=== PATIENT | male | born 1950 | race Caucasian/White ===

== ENCOUNTER 2018-10-11 09:51 | Observation (INO) | payer OTHER ==
[2018-10-11 10:35] LABS: Absolute Lymphocytes (CBC) 1.2 K/uL (0.7-4.9); Absolute Monocytes 1.1 K/uL (0.1-1.3); Absolute Neutrophil 9.9 K/uL (1.8-8.0); Basophils % 1.2 % (0-1.3); Hematocrit 13.1 % (39.6-49.0); Lymphocytes % 8.7 % (15.3-44.8); MPV 6.7 fL (7.6-11.3); Monocytes % 7.7 % (3.3-12.3); RBC Red Blood Cell Count 2.23 M/uL (4.33-5.43)
[2018-10-11 10:49] LABS: Protime INR 1.26
[2018-10-11 10:58] LABS: Albumin 2.7 g/dL (3.4-5.0); Bilirubin Direct 0.2 mg/dL (0-0.2); Bilirubin Total 0.4 mg/dL (0.2-1.0); Magnesium 2.3 mg/dL (1.8-2.4); Protein, Total 7.2 g/dL (6.4-8.2); Troponin (Emerg Dept Use Only) 0.12 ng/mL (0.0-0.045)
--- NOTE | 2018-10-11 11:39 | RAD REPORT ---
EXAM DESCRIPTION: RAD - Chest Single View - 10/11/2018 10:41 am CLINICAL HISTORY: Palpitations, difficulty breathing COMPARISON: June 2016 TECHNIQUE: AP portable chest image was obtained 1030 hours . FINDINGS: Lung volumes are low. No peripheral mass consolidation. Acute failure or volume overload a re doubtful. Interstitial markings are prominent due to the shallow inspiration. Significant change f rom prior study is doubtful. No new or progressive hilar finding. Heart and vasculature are normal. N o measurable pleural effusion and no pneumothorax. No acute bony abnormality seen. No acute aortic fi ndings suspected. IMPRESSION: No acute cardiopulmonary process. No significant change from comparison.
[2018-10-11 11:42] LABS: Anisocytosis 3+; Blood Morphology Comment NOTED (NOT SEEN); Hypochromasia 3+; Platelet Estimate INCR; Poikilocytosis 1+; Polychromasia 2+
[2018-10-11] MEDS ORDERED: NA CHLORIDE 0.9% 1,000 ML ONE (11:59)
--- NOTE | 2018-10-11 12:04 | ER ---
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 Transition of care: patient was not received from another setting of care. Onset of symptoms was October 11, 2018. Risk Assessment: Do you want to hurt yourself or someone else? Patient reports no desire to harm self or others. Initial Sepsis Screen: Does the patient meet any 2 criteria? No. Patient's initial sepsis screen is negative. Care prior to arrival: None. 10:09 Method Of Arrival: Ambulatory ph 10:09 Acuity: ALISON 3 ph 10:33 Initial Sepsis Screen: Does the patient have a suspected source of infection? No. ls4 Patient's initial sepsis screen is negative. Triage Assessment: 10:30 General: Appears in no apparent distress. Behavior is calm, cooperative. Pain: Denies ls4 pain. Historical: - Allergies: 10:13 No Known Allergies; ph - Home Meds: 16:16 Metoprolol Tartate 50mg BID, Metformin HCL 500mg BID, Benzonatate 100mg Q8HRS PRN mg2 [Active]; - PMHx: 10:34 Diabetes - NIDDM; Hypertension; Cancer, penile; ls4 - PSHx: 10:34 Appendectomy; ls4 - Immunization history:: Adult Immunizations unknown. - Social history:: Smoking status: Patient/guardian denies using tobacco. - Ebola Screening: : No symptoms or risks identified at this time. Screenin:32 Abuse screen: Denies threats or abuse. Denies injuries from another. Nutritional ls4 screening: No deficits noted. Tuberculosis screening: No symptoms or risk factors identified. Fall Risk None identified. Assessment: 10:31 General: Appears in no apparent distress. Behavior is calm, cooperative. Pain: Denies ls4 pain. Neuro: Level of Consciousness is awake, alert, obeys commands, Oriented to person, place, time, situation. Cardiovascular: Denies chest pain, diaphoresis, lightheadedness, nausea, palpitations. Respiratory: Airway is patent Respiratory effort is even, unlabored, Respiratory pattern is regular. GI: No signs and/or symptoms were reported involving the gastrointestinal system. : Reports blood in urine. Derm: Skin is dry, Skin is pale, Skin temperature is warm. 11:30 Reassessment: Patient appears in no apparent distress at this time. Patient and/or ls4 family updated on plan of care and expected duration. Pain level reassessed. Patient is alert, oriented x 3, equal unlabored respirations, skin warm/dry/pink. 12:23 Reassessment: Patient appears in no apparent distress at this time. Patient and/or ls4 family updated on plan of care and expected duration. Pain level reassessed. Patient is alert, oriented x 3, equal unlabored respirations, skin warm/dry/pink. 14:10 Reassessment: Patient appears in no apparent distress at this time. Patient and/or ls4 family updated on plan of care and expected duration. Pain level reassessed. Patient is alert, oriented x 3, equal unlabored respirations, skin warm/dry/pink. FIRST UNIT OF PRBC BEGUN. 2ND NURSE VERIFIED WITH MAHESH GREENE. CONSENT ON CHART SIGNED BY PT AND MD AND WITNESSED. PT GIVEN TRAY. PT IN NO DISTRESS. 16:04 Reassessment: ist bag of blood transfusion consumed.no reactions noted. mg2 Vital Signs: 10:11 BP 123 / 43; Pulse 76; Resp 22; Temp 98.0; Pulse Ox 98% on R/A; Weight 79.38 kg; Height ph 5 ft. 8 in. (172.72 cm); Pain 7/10; 11:00 BP 113 / 54; Pulse 66; Resp 16; Pulse Ox 100% on R/A; ls4 12:00 BP 107 / 53; Pulse 60; Resp 16; Pulse Ox 100% on R/A; Pain 0/10; ls4 13:37 BP 121 / 48; Pulse 58; Resp 16; Temp 97.1(TE); Pulse Ox 100% on R/A; ls4 16:09 BP 126 / 52; Pulse 65; Resp 18; Temp 97.5(O); Pulse Ox 100% on R/A; Pain 0/10; mg2 10:11 Body Mass Index 26.61 (79.38 kg, 172.72 cm) ph ED Course: 09:54 Patient arrived in ED. as 10:02 Keeley Ponce FNP-C is [facility]. kb 10:02 Guevara Palm MD is Attending Physician. kb 10:11 Triage completed. ph 10:12 Arm band placed on Patient placed in an exam room, on a stretcher, on pulse oximetry. ph 10:29 Saranya Iniguez RN is Primary Nurse. ls4 10:30 EKG completed in triage. Results shown to MD. ls4 10:30 XRAY Chest (1 view) Sent. ls4 10:32 Patient has correct armband on for positive identification. Bed in low position. Call ls4 light in reach. Side rails up X 1. monitoring specialist on. Pulse ox on. NIBP on. Diet: Patient is NPO. 10:33 X-ray completed. Portable x-ray completed in exam room. Patient tolerated procedure jb2 well. 10:33 No provider procedures requiring assistance completed. Initial lab(s) drawn, by nv, ls4 sent to lab. EKG done, by security installation technician. X-ray(s) taken. Inserted saline lock: 20 gauge in right antecubital area, using aseptic technique. Blood collected. 10:41 XRAY Chest (1 view) In Process Unspecified. EDMS 10:41 Notified ED physician of a critical lab result(s). Hemoglobin 3.8 and Hematocrit 13.1. aa5 10:46 EKG done, by security installation technician. reviewed by Keeley CONROY. at1 11:26 Bb Add On Sent. ls4 12:04 Mari Rawls MD is Hospitalizing Provider. kb 16:16 Patient admitted, IV remains in place. mg2 Administered Medications: 15:23 Drug: [place] (7.5 mg-325 mg) 1 tabs Route: PO; mg2 16:24 Follow up: Response: No adverse reaction; Marked relief of symptoms mg2 Outcome: 12:04 Decision to Hospitalize by Provider. kb 16:10 Admitted to Med/surg accompanied by tech, via wheelchair, room 213, with chart, Report mg2 called to RAMONA Benton 16:10 Condition: stable 16:10 Instructed on the need for admit, Demonstrated understanding of instructions. 16:25 Patient left the ED. mg2 Signatures: Dispatcher [employer] EDMS Keeley Ponce, KEELEY-C CART DRIVER-Severiano Sylvester2 Katy Swartz Audri, RN RN aa5 Arcelia Jiang, house painter helper EKG Tat1 Aruna Selby RN RN ph Nigel Huynh RN RN mg2 Saranya Iniguez RN RN ls4 Corrections: (The following items were deleted from the chart) 10:34 10:13 PMHx: Diabetes - NIDDM; ph ls4 10:34 10:13 PMHx: Hypertension; ph ls4 10:34 10:13 PMHx: Cancer, penile; ph ls4 10:34 10:13 PSHx: Appendectomy; ph ls4
--- NOTE | 2018-10-11 12:05 | EDPHYS ---
Physician Documentation [facility] Name: Mikel Serrato Age: 68 yrs Sex: Male : 1950 Arrival Date: 10/11/2018 Time: 09:54 Bed 24 Private MD: ED Physician Guevara Palm HPI: 10/11 10:13 This 68 yrs old Male presents to ER via Ambulatory with complaints of kb Weakness. 10:13 The patient presents with dizziness, generalized weakness. Onset: The symptoms/episode kb began/occurred 1 month(s) ago. Context: occurred at home. Modifying factors: The symptoms are alleviated by nothing, the symptoms are aggravated by nothing. Associated signs and symptoms: Pertinent positives: palpitations, shortness of breath. Severity of symptoms: At their worst the symptoms were moderate in the emergency department the symptoms are unchanged. Patient's baseline: Neuro: alert and fully oriented, Motor: no deficits, Ambulation: walks without assistance, Speech: normal. The patient has not experienced similar symptoms in the past. Pt reports dizziness, weakness, shortness of breath and "heart beating hard" for about a month. Went to PCP today and was told he needed to come have a blood transfusion. Reports he has hematuria that has been an ongoing issue. Was seen by urologist for hematuria and was told he needed to have surgery, but pt did not want it done. Reports he was diagnosed with penile cancer a year ago and is going to [facility] [place] soon for the treatment because it is not offered in the . Denies chest pain, reports he has penile pain, but no more than normal. . 10:18 The patient has been recently seen by a physician: the patient's primary care provider, kb earlier today, with similar presenting complaints, and was sent to the [facility] Emergency Department for further evaluation. Historical: - Allergies: 10:13 No Known Allergies; ph - Home Meds: 16:16 Metoprolol Tartate 50mg BID, Metformin HCL 500mg BID, Benzonatate 100mg Q8HRS PRN mg2 [Active]; - PMHx: 10:34 Diabetes - NIDDM; Hypertension; Cancer, penile; ls4 - PSHx: 10:34 Appendectomy; ls4 - Immunization history:: Adult Immunizations unknown. - Social history:: Smoking status: Patient/guardian denies using tobacco. - Ebola Screening: : No symptoms or risks identified at this time. ROS: 10:11 Constitutional: Negative for fever, chills, and weight loss, ENT: Negative for injury, kb pain, and discharge, Neck: Negative for injury, pain, and swelling, Abdomen/GI: Negative for abdominal pain, nausea, vomiting, diarrhea, and constipation, Back: Negative for injury and pain, MS/Extremity: Negative for injury and deformity, Skin: Negative for injury, rash, and discoloration. 10:11 Cardiovascular: Positive for palpitations, "feels like my heart is beating hard". 10:11 Respiratory: Positive for dyspnea on exertion, shortness of breath. 10:11 Neuro: Positive for dizziness, weakness. Exam: 10:11 Head/Face: Normocephalic, atraumatic. ENT: Nares patent. No nasal discharge, no kb septal abnormalities noted. Tympanic membranes are normal and external auditory canals are clear. Oropharynx with no redness, swelling, or masses, exudates, or evidence of obstruction, uvula midline. Mucous membranes moist. Neck: Trachea midline, no thyromegaly or masses palpated, and no cervical lymphadenopathy. Supple, full range of motion without nuchal rigidity, or vertebral point tenderness. No Meningismus. Chest/axilla: Normal chest wall appearance and motion. Nontender with no deformity. No lesions are appreciated. Cardiovascular: Regular rate and rhythm with a normal S1 and S2. No gallops, murmurs, or rubs. Normal PMI, no JVD. No pulse deficits. Respiratory: Lungs have equal breath sounds bilaterally, clear to auscultation and percussion. No rales, rhonchi or wheezes noted. No increased work of breathing, no retractions or nasal flaring. Abdomen/GI: Soft, non-tender, with normal bowel sounds. No distension or tympany. No guarding or rebound. No evidence of tenderness throughout. Skin: Warm, dry with normal turgor. Normal color with no rashes, no lesions, and no evidence of cellulitis. MS/ Extremity: Pulses equal, no cyanosis. Neurovascular intact. Full, normal range of motion. Neuro: Awake and alert, GCS 15, oriented to person, place, time, and situation. Cranial nerves II-XII grossly intact. Motor strength 5/5 in all extremities. Sensory grossly intact. Cerebellar exam normal. Normal gait. 10:11 Constitutional: The patient appears alert, awake, pale. Vital Signs: 10:11 BP 123 / 43; Pulse 76; Resp 22; Temp 98.0; Pulse Ox 98% on R/A; Weight 79.38 kg; Height ph 5 ft. 8 in. (172.72 cm); Pain 7/10; 11:00 BP 113 / 54; Pulse 66; Resp 16; Pulse Ox 100% on R/A; ls4 12:00 BP 107 / 53; Pulse 60; Resp 16; Pulse Ox 100% on R/A; Pain 0/10; ls4 13:37 BP 121 / 48; Pulse 58; Resp 16; Temp 97.1(TE); Pulse Ox 100% on R/A; ls4 16:09 BP 126 / 52; Pulse 65; Resp 18; Temp 97.5(O); Pulse Ox 100% on R/A; Pain 0/10; mg2 10:11 Body Mass Index 26.61 (79.38 kg, 172.72 cm) ph MDM: 10:02 Patient medically screened. kb 10:13 Data reviewed: vital signs, nurses notes. Data interpreted: Pulse oximetry: on room air kb is 98 %. Interpretation: normal. 11:41 Counseling: I had a detailed discussion with the patient and/or guardian regarding: the kb historical points, exam findings, and any diagnostic results supporting the discharge/admit diagnosis, lab results, radiology results, the need for further work-up and treatment in the hospital. 10/11 10:09 Order name: LFT's; Complete Time: 10:59 kb 10/11 10:09 Order name: Basic Metabolic Panel; Complete Time: 10:59 kb 10/11 10:09 Order name: CBC with Diff; Complete Time: 11:46 kb 10/11 10:09 Order name: Magnesium; Complete Time: 10:59 kb 10/11 10:09 Order name: NT PRO-BNP; Complete Time: 10:59 kb 10/11 10:09 Order name: PT-INR; Complete Time: 10:55 kb 10/11 10:09 Order name: Troponin (emerg Dept Use Only); Complete Time: 10:59 kb 10/11 10:09 Order name: Type And Screen kb 10/11 11:00 Order name: Bb Add On bd 10/11 11:13 Order name: ABO/RH no charge; Complete Time: 11:14 [facility] 10/11 11:26 Order name: Urine Dipstick--Ancillary (enter results); Complete Time: 12:15 10/11 11:31 Order name: Packed RBC Leukored -1 [facility] 10/11 11:42 Order name: Manual Differential; Complete Time: 11:46 [facility] 10/11 10:09 Order name: XRAY Chest (1 view); Complete Time: 11:41 kb 10/11 10:09 Order name: EKG; Complete Time: 10:10 kb 10/11 10:09 Order name: Cardiac monitoring; Complete Time: 10:30 kb 10/11 10:09 Order name: EKG - Nurse/Tech; Complete Time: 10:30 kb 10/11 10:09 Order name: IV Saline Lock; Complete Time: 10:30 kb 10/11 10:09 Order name: Labs collected and sent; Complete Time: 10:30 kb 10/11 10:09 Order name: O2 Per Protocol; Complete Time: 10:30 kb 10/11 10:09 Order name: O2 Sat Monitoring; Complete Time: 10:30 kb 10/11 10:53 Order name: Urine Dipstick-Ancillary (obtain specimen); Complete Time: 11:26 kb 10/11 13:16 Order name: Diet Regular; Complete Time: 13:17 bd Administered Medications: 15:23 Drug: [place] (7.5 mg-325 mg) 1 tabs Route: PO; mg2 16:24 Follow up: Response: No adverse reaction; Marked relief of symptoms mg2 Disposition: 18:56 Co-signature as Attending Physician, Guevara Palm MD. rn Disposition: 10/11/18 12:04 Hospitalization ordered by Mari Rawls for Observation. Preliminary diagnosis are Anemia, unspecified, Hematuria, unspecified. - Bed requested for Telemetry/MedSurg (observation). - Status is Observation. mg2 - Condition is Stable. - Problem is new. - Symptoms are unchanged. UTI on Admission? No Signatures: Dispatcher [employer] [facility] Keeley Ponce FNP-C DATA ANALYST REPORT WRITER-CkJelly Mccarty Guevara Palm MD MD rn Hall, Patricia, RN RN Nigel Huynh RN RN [facility] Hira, Saranya, RN RN ls4 Corrections: (The following items were deleted from the chart) 10:34 10:13 PMHx: Diabetes - NIDDM; ph ls4 10:34 10:13 PMHx: Hypertension; ph ls4 10:34 10:13 PMHx: Cancer, penile; ph ls4 10:34 10:13 PSHx: Appendectomy; ph ls4 15:43 12:04 Hospitalization Ordered by Mari Rawls MD for Observation. Preliminary bd diagnosis is Anemia, unspecified; Hematuria, unspecified. Bed requested for Telemetry/MedSurg (observation). Status is Observation. Condition is Stable. Problem is new. Symptoms are unchanged. UTI on Admission? No. kb 16:25 15:43 10/11/2018 12:04 Hospitalization Ordered by Mari Rawls MD for Observation. mg2 Preliminary diagnosis is Anemia, unspecified; Hematuria, unspecified. Bed requested for Telemetry/MedSurg (observation). Status is Observation. Condition is Stable. Problem is new. Symptoms are unchanged. UTI on Admission? No. bd
[2018-10-11 12:14] LABS: Urine Blood 2+ (NEG); Urine Glucose NEGATIVE (NEG); Urine Protein 2+ (NEG); Urine Specific Gravity 1.015 (1.005-1.030)
--- NOTE | 2018-10-11 14:46 | EKG ---
Test Date: 2018-10-11 Test Time: 10:14:50 Talk Show Host: KIMMIE MEASUREMENT RESULTS: Intervals: Rate: 72 MN: 180 QRSD: 102 QT: 400 QTc: 438 [place]: P: -4 MN: 180 QRS: 8 T: 34 INTERPRETIVE STATEMENTS: Normal sinus rhythm Normal ECG Compared to ECG 03/19/2016 06:28:31 Sinus bradycardia no longer present First degree AV block no longer present Electronically Signed On 10-11-18 14:44:23 FISHING CAPTAIN by Macho Aldrich
[2018-10-11] MEDS ORDERED: HYDROCODONE/APAP 7.5/325 MG TAB ONE (15:32)
[2018-10-11] MEDS ORDERED: ONDANSETRON 4 MG/2 ML VIAL IV PRN (16:32)
--- NOTE | 2018-10-11 17:11 | P.HP ---
Certification for Inpatient Patient admitted to: Observation With expected LOS: <2 Midnights Patient will require the following post-hospital care: None Practitioner: I am a practitioner with admitting privileges, knowledge of patient current condition, hospital course, and medical plan of care. Services: Services provided to patient in accordance with Admission requirements found in Title 42 Section 412.3 of the Code of Federal Regulations Patient History Date of Service: 10/11/18 History of Present Illness: This is a 68-year-old male with significant past medical history of diabetes, hypertension, questionable penile cancer along with hematuria who presented to the ED complaining of having some dizziness and generalized weakness. Patient noted that this past Wednesday he had extensive hematuria and after which he started noticing that he was becoming more weak and having dizziness and thus he decided to come to the ER. Patient stated that he has been having hematuria on and off for over 1 year and has been seen by 4 different urologist. Patient initially went to his primary care doctor for his initial evaluation of hematuria. From there patient was referred over to Urology where he was told that he had questionable penile cancer and hematuria needed to be worked up. Patient and at bedside are very poor historian. Patient does not know if he had any biopsy or imaging done to evaluate for the cancer. Patient says that he only remembers getting a CT scan done somewhere in [facility] that revealed the Cancer. Patient has been followed up by his primary care doctor in terms of cancer and has been seeking treatment outside of the [place] in the [facility] for cure of his cancer. He has stopped seeing any urologist and is only currently followed up by primary care doctor for his cancer. Patient states that he has been making arrangements to travel to [facility] where he could start his treatment as early as 2 weeks from now. Patient however has been given a list of things that he needs to get done before he goes over for treatment there. states that the list is a currently with his primary care doctor's office and will be bringing in in tomorrow. Allergies NKDA Allergy (Uncoded 10/11/18 16:45) Unknown No Known Allerg Allergy (Uncoded 10/11/18 16:45) Unknown Home Medications: Hydrocodone Bit/Acetaminophen [Hydrocodon-Acetaminoph 7.5-500] 7.5 mg PO BID Iron,Carbonyl [Feosol] 65 mg PO DAILY 10/11/18 Metformin HCl 500 mg PO BID 10/11/18 Milk Thistle/Nac/Dandel/Turmer [Liver Complex Tablet] 10/11/18 Montelukast [Singulair*] 10 mg PO PRN 10/11/18 - Past Medical/Surgical History Diabetic: Yes -: DM -: HTN -: APPY -: RIGHT HIP SX -: RIGHT KNEE SX - Social History Alcohol use: Yes CD- Drugs: No Caffeine use: Yes Review of Systems 10-point ROS is otherwise unremarkable Physical Examination - Vital Signs Temperature: 97.5 F Blood Pressure: 126/52 Pulse: 65 Respirations: 18 - Physical Exam General: In no apparent distress, Moderate distress, Other (Pale-appearing) HEENT: Atraumatic, PERRLA, Other (Dry mucous membrane) Neck: Supple, 2+ carotid pulse no bruit, No LAD, Without JVD or thyroid abnormality Respiratory: Clear to auscultation bilaterally, Normal air movement Cardiovascular: Regular rate/rhythm, Normal S1 S2 Capillary refill: >2 Seconds Gastrointestinal: Normal bowel sounds, No tenderness Musculoskeletal: No tenderness, Other (Pale appearing) Integumentary: No rashes Neurological: Normal speech, Normal tone, Sensation intact, Cranial nerves 3-12 intact, Abnormal strength Lymphatics: No axilla or inguinal lymphadenopathy - Studies Laboratory Data (last 24 hrs) 10/11/18 10:15: PT 14.7 H, INR 1.26 10/11/18 10:15: WBC 13.6 H, Hgb 3.8 L*, Hct 13.1 L*, Plt Count 530 H 10/11/18 10:15: Sodium 138, Potassium 4.0, BUN 17, Creatinine 0.98, Glucose 117 H, Magnesium 2.3, Total Bilirubin 0.4, AST 11 L, ALT 11 L, Alkaline Phosphatase 85 Assessment and Plan - Problems (Diagnosis) (1) Symptomatic anemia Current Visit: Yes Status: Acute Plan: Currently symptomatic anemia most likely secondary to hematuria. -hemoglobin on admission at 3.8 with patient very pale appearing and tachycardia -will go ahead and transfuse 3 units of packed RBC and recheck hemoglobin after transfusion (2) Hematuria Current Visit: Yes Status: Acute Plan: Gross hematuria intermittent for over 1 year most likely secondary to suspected penile cancer -will go ahead and consult urology here in the hospital. Will await further recommendations at this time. Qualifiers: Hematuria type: gross Qualified Code(s): R31.0 - Gross hematuria (3) Penile cancer Current Visit: Yes Status: Suspected Plan: Suspected penile cancer -currently no imaging, no biopsy her no other result available in the system -will contact primary care doctor for further information. (4) Hypertension Current Visit: Yes Status: Chronic Qualifiers: Hypertension type: essential hypertension Qualified Code(s): I10 - Essential (primary) hypertension (5) Diabetes Current Visit: No Status: Chronic Qualifiers: Diabetes mellitus type: type 2 Diabetes mellitus correction insulin use: without regional intermodal truck driver use Diabetes mellitus complication status: without complication Qualified Code(s): E11.9 - Type 2 diabetes mellitus without complications Discharge Plan: Home Plan to discharge in: 48 Hours - Advance Directives Does patient have a Living Will: No Does patient have a Durable POA for Healthcare: No - Code Status/Comfort Care Code Status Assessed: Yes Critical Care: No
[2018-10-11] MEDS: NA CHLORIDE 0.9% 1,000 ML IV SCH (17:19)
[2018-10-11] MEDS ORDERED: INFLUENZA VACCINE (for 3y+) 0.5 ML DOSE IMVAC ONE (18:00)
[2018-10-11 18:12] VITALS: BMI 25.7
[2018-10-11] MEDS ORDERED: NA CHLORIDE 0.9% 250 ML ONE (19:46)
[2018-10-12 02:26] LABS: Hematocrit 19.1 % (39.6-49.0)
[2018-10-12] MEDS: NA CHLORIDE 0.9% 1,000 ML IV SCH ×3 (02:32→21:25)
[2018-10-12] MEDS ORDERED: NA CHLORIDE 0.9% 250 ML ONE ×2 (03:17→10:21)
[2018-10-12] MEDS ORDERED: HYDROCODONE/APAP 7.5/325 MG TAB PO PRN (03:41)
[2018-10-12 06:17] LABS: ALT/SGPT 10 U/L (12-78); AST/SGOT 11 U/L (15-37); Albumin 2.4 g/dL (3.4-5.0); Alkaline Phosphatase 82 U/L (45-117); BUN Blood Urea Nitrogen 13 mg/dL (7-18); Bicarbonate 26 mmol/L (21-32); Glucose Level 92 mg/dL (74-106); Potassium 4.2 mmol/L (3.5-5.1); Protein, Total 6.4 g/dL (6.4-8.2); Sodium Level 139 mmol/L (136-145)
[2018-10-12 06:28] LABS: Absolute Lymphocytes (CBC) 1.5 K/uL (0.7-4.9); Absolute Monocytes 1.2 K/uL (0.1-1.3); Absolute Neutrophil 8.7 K/uL (1.8-8.0); Basophils % 0.9 % (0-1.3); Eosinophils % 12.9 % (0-4.4); Lymphocytes % 11.3 % (15.3-44.8); MPV 6.9 fL (7.6-11.3); Monocytes % 9.2 % (3.3-12.3); RBC Red Blood Cell Count 2.85 M/uL (4.33-5.43)
[2018-10-12 06:44] LABS: Hematocrit 20.4 % (39.6-49.0)
[2018-10-12] MEDS: HYDROCODONE/APAP 7.5/325 MG TAB PO PRN ×2 (11:27→21:25)
[2018-10-12 13:47] LABS: T3 Free 2.41 pg/mL (2.18-3.98)
[2018-10-12 13:48] LABS: Thyroid Stimulating Hormone 8.76 uIU/mL (0.360-3.740)
[2018-10-12 16:08] LABS: Hematocrit 27.8 % (39.6-49.0)
--- NOTE | 2018-10-12 17:23 | P.PN ---
Subjective Date of Service: 10/12/18 Patient seen and examined at bedside with RN. Chart reviewed. Patient's case discussed with urology at this time. Overnight patient had 1 episode of hematuria. No complaints to offer overnight. States that he feels much better today than before. Review of Systems 10-point ROS is otherwise unremarkable Physical Examination - Vital Signs Temperature: 97.9 F Blood Pressure: 127/56 Pulse: 67 Respirations: 16 Pulse Ox (%): 98 - Physical Exam General: Alert, In no apparent distress HEENT: Atraumatic, PERRLA, EOMI Neck: Supple, JVD not distended Respiratory: Clear to auscultation bilaterally, Normal air movement Cardiovascular: Regular rate/rhythm, Normal S1 S2 Gastrointestinal: Normal bowel sounds, No tenderness Musculoskeletal: No tenderness Integumentary: No rashes Neurological: Normal speech, Normal tone, Normal affect Lymphatics: No axilla or inguinal lymphadenopathy Urinary: Other (Senile mass noted at the entrance of the penis. Nodularity at the distal end of the penis noted as well. No ulceration or necrosis noted at this time. Tip of the penis with blood) - Studies Medications List Reviewed: Yes Assessment And Plan - Current Problems (Diagnosis) (1) Symptomatic anemia Current Visit: Yes Status: Acute Plan: Currently symptomatic anemia most likely secondary to hematuria. -hemoglobin on admission at 3.8 with patient very pale appearing and tachycardia -status post 4 units of packed RBCs. Currently hemoglobin is up to 8.7. -patient currently still continuing to have bleeding from the penile area (2) Hematuria Current Visit: Yes Status: Acute Plan: Gross hematuria intermittent for over 1 year most likely secondary to suspected penile cancer -urology consulted. Awaiting recommendations at this time. -will get PSA, TSH, T3-T4, MRI, to evaluate for penile cancer as mentioned by patient. -patient may need to follow up with tertiary care center after his symptomatic anemia has resolved for further treatment of his cancer. Qualifiers: Hematuria type: gross Qualified Code(s): R31.0 - Gross hematuria (3) Penile cancer Current Visit: Yes Status: Suspected Plan: Suspected penile cancer -currently no imaging, no biopsy her no other result available in the system -will get MRI, PSA, TSH, T3-T4 -urology has been consulted. Awaiting recommendations at this time (4) Hypertension Current Visit: Yes Status: Chronic Qualifiers: Hypertension type: essential hypertension Qualified Code(s): I10 - Essential (primary) hypertension (5) Diabetes Current Visit: No Status: Chronic Qualifiers: Diabetes mellitus type: type 2 Diabetes mellitus termite control technician insulin use: without termite control technician use Diabetes mellitus complication status: without complication Qualified Code(s): E11.9 - Type 2 diabetes mellitus without complications Discharge Plan: Home Plan to discharge in: 48 Hours - Code Status/Comfort Care Code Status Assessed: Yes Critical Care: No
--- NOTE | 2018-10-12 20:00 | RAD REPORT ---
EXAM DESCRIPTION: MRI - Mri Abdomen W/Wo Cont - 10/12/2018 7:32 pm CLINICAL HISTORY: Penile cancer TECHNIQUE: Axial and coronal magnetic resonance imaging of the abdomen obtained. 20 cc MultiHance ad ministered intravenously FINDINGS: The liver, spleen, pancreas, adrenals and kidneys demonstrate normal signal. Normal enhancement is displayed. No ascites seen. IMPRESSION: No evidence metastatic disease to the abdomen
--- NOTE | 2018-10-12 20:20 | RAD REPORT ---
EXAM DESCRIPTION: MRI - Pelvis W/Wo Cont - 10/12/2018 7:31 pm CLINICAL HISTORY: Penile cancer COMPARISON: none TECHNIQUE: Axial, sagittal, and coronal magnetic images of the pelvis obtained. 20 cc MultiHance adm inistered intravenously FINDINGS: An approximately 6 centimeter mass is present within the distal penis. The mass invades th e corpus cavernosa and urethra. Bilateral inguinal lymph nodes are present. The largest is on the right measuring 3.7 centimeters in short axis. Lymph nodes are present within the lower right external iliac chain. Largest measures 3.6 centimeters . IMPRESSION: A 6 centimeter mass within the distal penis consistent with neoplasm Metastatic pelvic and inguinal lymphadenopathy
[2018-10-13 00:09] LABS: Urine Appearance CLEAR; Urine Bilirubin NEGATIVE (NEG); Urine Blood 2+ (NEG); Urine Color YELLOW; Urine Glucose NEGATIVE (NEG); Urine Protein NEGATIVE (NEG); Urine Urobilinogen 0.2 mg/dL (0.2-1.0)
[2018-10-13 00:17] LABS: Urine Microscopic Reflex ORDER UMIC
[2018-10-13 00:43] LABS: Urine Bacteria <20 /HPF (NONE SEEN); Urine Culture Reflex Order REFLEXED; Urine RBC <5 /HPF (NONE SEEN)
[2018-10-13 00:55] VITALS: O2SAT 98
[2018-10-13] MEDS: HYDROCODONE/APAP 7.5/325 MG TAB PO PRN ×2 (06:28→11:55)
[2018-10-13 06:56] LABS: Absolute Lymphocytes (CBC) 1.3 K/uL (0.7-4.9); Absolute Monocytes 1.2 K/uL (0.1-1.3); Absolute Neutrophil 8.9 K/uL (1.8-8.0); Basophils % 1.3 % (0-1.3); Eosinophils % 14.7 % (0-4.4); Hematocrit 29.4 % (39.6-49.0); Lymphocytes % 9.6 % (15.3-44.8); MPV 6.9 fL (7.6-11.3); Monocytes % 8.9 % (3.3-12.3); RBC Red Blood Cell Count 3.95 M/uL (4.33-5.43)
[2018-10-13 07:05] LABS: BUN Blood Urea Nitrogen 9 mg/dL (7-18); Bicarbonate 27 mmol/L (21-32); Glucose Level 94 mg/dL (74-106); Magnesium 2.1 mg/dL (1.8-2.4); Phosphorus 3.4 mg/dL (2.5-4.9); Potassium 3.8 mmol/L (3.5-5.1); Sodium Level 138 mmol/L (136-145)
[2018-10-13] MEDS: NA CHLORIDE 0.9% 1,000 ML IV SCH (08:32)
[2018-10-13 09:49] VITALS: BP 125/66; TEMP 98.4
--- NOTE | 2018-10-13 14:50 | P.DS ---
Admission Date: 10/11/18 Discharge Date: 10/13/18 Disposition: ROUTINE DISCHARGE Discharge Condition: GOOD Reason for Admission: Hematuria Consultations: Urology - Problems (1) Symptomatic anemia Status: Acute (2) Hematuria Status: Acute Qualifiers: Hematuria type: gross Qualified Code(s): R31.0 - Gross hematuria (3) Penile cancer Status: Suspected (4) Hypertension Status: Chronic Qualifiers: Hypertension type: essential hypertension Qualified Code(s): I10 - Essential (primary) hypertension (5) Diabetes Status: Chronic Qualifiers: Diabetes mellitus type: type 2 Diabetes mellitus nursing home insulin use: without nursing home use Diabetes mellitus complication status: without complication Qualified Code(s): E11.9 - Type 2 diabetes mellitus without complications Brief History of Present Illness: This is a 68-year-old male with significant past medical history of diabetes, hypertension, questionable penile cancer along with hematuria who presented to the ED complaining of having some dizziness and generalized weakness. Patient noted that this past Wednesday he had extensive hematuria and after which he started noticing that he was becoming more weak and having dizziness and thus he decided to come to the ER. Patient stated that he has been having hematuria on and off for over 1 year and has been seen by 4 different urologist. Patient initially went to his primary care doctor for his initial evaluation of hematuria. From there patient was referred over to Urology where he was told that he had questionable penile cancer and hematuria needed to be worked up. Patient and at bedside are very poor historian. Patient does not know if he had any biopsy or imaging done to evaluate for the cancer. Patient says that he only remembers getting a CT scan done somewhere in [facility] that revealed the Cancer. Patient has been followed up by his primary care doctor in terms of cancer and has been seeking treatment outside of the [place] in the [facility] for cure of his cancer. He has stopped seeing any urologist and is only currently followed up by primary care doctor for his cancer. Patient states that he has been making arrangements to travel to [facility] where he could start his treatment as early as 2 weeks from now. Patient however has been given a list of things that he needs to get done before he goes over for treatment there. states that the list is a currently with his primary care doctor's office and will be bringing in in tomorrow. Hospital Course: Overall during the hospital stay patient remained stay Patient was initially admitted to the hospital for symptomatic anemia with a hemoglobin of 3.8 secondary to hematuria. Patient was transfused total of 4 units of blood here. H&H did go up to 8.7 and then 9.7. Patient's symptoms of dizziness or weakness does resolve while here in the hospital. Patient's hematuria was further assessed. Patient stated that he has been having hematuria for over a year on an off and was recently diagnosed with penile cancer for which she follows up with several urologists however was initially seeking natural remedies. However after this hospitalization and identifying that the problem is more serious than he thought he is willing to go back to the urology that he saw last week at [facility] for further treatment. It was consulted here in the hospital who recommended the patient follow up with [facility] for possible surgical resection of the penile cancer and then chemo and radiation post surgical resection. Family was made aware of the decision and was asked to follow up with [facility] own [facility]. Patient made an appointment to go see the oncologist in about 1-2 days post discharge and thus was discharged home under stable condition. While here in the hospital patient did not have any other hematuria episode. Vital Signs/Physical Exam: Temp Pulse Resp BP Pulse Ox 98.4 F 64 18 125/66 97 10/13/18 08:00 10/13/18 08:00 10/13/18 08:00 10/13/18 08:00 10/13/18 08:00 General: Alert, In no apparent distress HEENT: Atraumatic, PERRLA, EOMI Neck: Supple, JVD not distended Respiratory: Clear to auscultation bilaterally, Normal air movement Cardiovascular: Regular rate/rhythm, Normal S1 S2 Gastrointestinal: Normal bowel sounds, No tenderness Musculoskeletal: No tenderness Integumentary: No rashes Neurological: Normal speech, Normal tone, Normal affect Lymphatics: No axilla or inguinal lymphadenopathy Urinary: Other (penile Mass noted at the tip of the Penis) Laboratory Data at Discharge: WBC 13.6 K/uL (4.3-10.9) H 10/13/18 06:21 Hgb 9.5 g/dL (13.6-17.9) L 10/13/18 06:21 Hct 29.4 % (39.6-49.0) L 10/13/18 06:21 Plt Count 439 K/uL (152-406) H 10/13/18 06:21 PT 14.7 SECONDS (9.5-12.5) H 10/11/18 10:15 INR 1.26 10/11/18 10:15 Sodium 138 mmol/L (136-145) 10/13/18 06:21 Potassium 3.8 mmol/L (3.5-5.1) 10/13/18 06:21 BUN 9 mg/dL (7-18) 10/13/18 06:21 Creatinine 0.80 mg/dL (0.55-1.3) 10/13/18 06:21 Glucose 94 mg/dL (74-106) 10/13/18 06:21 Phosphorus 3.4 mg/dL (2.5-4.9) 10/13/18 06:21 Magnesium 2.1 mg/dL (1.8-2.4) 10/13/18 06:21 Total Bilirubin 1.0 mg/dL (0.2-1.0) 10/12/18 05:27 AST 11 U/L (15-37) L 10/12/18 05:27 ALT 10 U/L (12-78) L 10/12/18 05:27 Alkaline Phosphatase 82 U/L (45-117) 10/12/18 05:27 Home Medications: Hydrocodone Bit/Acetaminophen [Hydrocodon-Acetaminoph 7.5-500] 7.5 mg PO BID Iron,Carbonyl [Feosol] 65 mg PO DAILY 10/11/18 Metformin HCl 500 mg PO BID 10/11/18 Montelukast [Singulair*] 10 mg PO PRN 10/11/18 Diet: Regular Activity: Ad gigi Followup: Nancy Sorto MD [ACTIVE - CAN ADMIT] - 1-2 Weeks Tripp Luis MD [OUTSIDE PHYSICIAN] - 1 Week
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
== END 2018-10-13 13:02 | disposition home or self-care (01) ==
LOC: ER 09:51 → ERHOLD 13:12 → 2ND 16:11
PROVIDERS: ADMIT Family Medicine; ATTEND Family Medicine
PROC: 30233N1 Transfusion of Nonautologous Red Blood Cells into Peripheral Vein, Percutaneous Approach (ICD-10-PCS; principal; 2018-10-11)
DX: D64.9 Anemia, unspecified (principal); R31.9 Hematuria, unspecified; C60.9 Malignant neoplasm of penis, unspecified; I10 Essential (primary) hypertension; E11.9 Type 2 diabetes mellitus without complications
CPT/HCPCS: 93005; 87088; 85025 ×3; 87086; 80048 ×2; 36415 ×2; 86900; 83735 ×2; 86850; 84100; 85610; 86901; 82962 ×6; 80076; 85652; 84443; 85018 ×2; 85014 ×2; 81003; 84484; 84481; 84439; 84153; 80053; 83880; 71045; 72197; 99285; 36430; A9577; P9016 ×4; J7030 ×4; 81015

== ENCOUNTER 2019-03-28 10:54 | Emergency (ER) | payer OTHER ==
--- OUTSIDE RECORDS SUMMARY | 2019-03-28 11:16 | XMS REPORT | Clinical Summary ---
:1950 Author Organization [facility] Address [address] [place] [address] Care Team Providers Name Role Phone Tripp Luis MD Primary Care Provider Unavailable Allergies No Known Allergies Medications Medication Sig Dispensed Refills Start Date End Date Status sodium Apply topically 2 473 mL 0 03/24/2019 Active hypochlorite (two) times daily 9 (DAKIN'S, for 14 days. HALF-STRENGTH,) 0.25 % external solution HYDROcodone-aceta Take 1 tablet by 30 tablet 0 03/24/2019 Active minophen (NORCO mouth every 4 9 5-325) 5-325 mg (four) hours as per tablet needed for Pain for up to 30 days. Max Daily Amount: 6 tablets senna-docusate Take 2 tablets by 120 tablet 0 03/24/2019 Active (SENOKOT S) mouth 2 (two) 9 8.6-50 mg per times daily for tablet 30 days. polyethylene Take 17 g by 30 each 0 03/24/2019 Active glycol (GLYCOLAX) mouth daily as 9 17 gram packet needed (Constipation) for up to 30 days. sulfamethoxazole- Take 1 tablet 20 tablet 0 03/24/2019 Active trimethoprim (160 mg of 9 (BACTRIM DS) trimethoprim 800-160 mg per total) by mouth 2 tablet (two) times daily for 10 days. HYDROcodone-aceta Take 1 tablet by 0 Discontinued minophen (NORCO mouth every 6 9 7.5-325) 7.5-325 (six) hours as mg per tablet needed for Pain. iron, carbonyl 45 Take by mouth. 0 Discontinued mg Tab tablet 9 metFORMIN Take 500 mg by 0 Discontinued (GLUCOPHAGE) 500 mouth 2 (two) 9 MG tablet times daily with breakfast and dinner. montelukast Take 10 mg by 0 Discontinued (SINGULAIR) 10 mg mouth nightly. 9 tablet losartan (COZAAR) Take 50 mg by 0 Discontinued 50 MG tablet mouth daily. 9 amLODIPine Take 10 mg by 0 Discontinued (NORVASC) 10 MG mouth daily. 9 tablet traMADol (ULTRAM) Take 2 tablets 30 tablet 0 10/25/2018 50 mg tablet (100 mg total) by 9 mouth every 6 (six) hours for 10 days. Max Daily Amount: 400 mg docusate sodium Take 1 capsule 10 capsule 0 10/25/2018 (COLACE) 100 MG (100 mg total) by 9 capsule mouth 2 (two) times daily for 10 days. sulfamethoxazole- Take 1 tablet 14 tablet 0 10/25/2018 trimethoprim (160 mg of 9 (BACTRIM DS) trimethoprim 800-160 mg per total) by mouth 2 tablet (two) times daily for 7 days. Active Problems Problem Noted Date Inadequate pain control 03/24/2019 Severe protein-calorie malnutrition (Montoya: less than 60% of standard 2018 weight) Leukocytosis 03/24/2019 Severe protein-calorie malnutrition 03/22/2019 Acute blood loss anemia 03/22/2019 Palliative care encounter 03/21/2019 Right groin mass 03/20/2019 Penile cancer 10/26/2018 Penile mass 10/24/2018 Encounters Date Type Specialty Care Team Description 03/20/2019 - Hospital Encounter Cardiology Ryan Walton Right groin mass (Primary Dx); 03/24/2019 MD Vini Penile cancer ([facility]); Isabella, Leukocytosis, unspecified type; MD Shannen Severe protein-calorie malnutrition (Montoya: less than 60% of standard weight) ([facility]); Kristie Martinez, Hypotension, unspecified hypotension type; Cellulitis of other specified site; Acute blood loss anemia; Palliative care encounter 03/20/2019 Travel 10/24/2018 Anesthesia Event Renetta Martinez 10/24/2018 Surgery Toby, PENECTOMY MD Tripp 10/24/2018 - Hospital Encounter General Internal Toby, Penile mass ( Primary Dx); 10/26/2018 Medicine MD Tripp Penile cancer (HCC) 10/24/2018 Orders Only General Internal Medicine 10/21/2018 Hospital Encounter Pre-Admission Resource, Oqmt Testing Preadmit Phone after 03/27/2018 Social History Tobacco Use Types Packs/Day Years Used Date Former Smoker Quit: 2015 Smokeless Tobacco: Never Used Alcohol Use Drinks/Week oz/Week Comments Yes socially Sex Assigned at Date Recorded Not on file Job Start Date Occupation Industry Not on file Not on file Not on file Travel History Travel Start Travel End No recent travel history available. Last Filed Vital Signs Vital Sign Reading Time Taken Blood Pressure 109/53 03/24/2019 2:08 PM CDT Pulse 90 03/24/2019 2:08 PM CDT Temperature 37.1 C (98.7 F) 03/24/2019 2:08 PM CDT Respiratory Rate 18 03/24/2019 2:08 PM CDT Oxygen Saturation 98% 03/24/2019 2:08 PM CDT Inhaled Oxygen Concentration - - Weight 74.4 kg (164 lb 1 oz) 03/24/2019 5:12 AM CDT Height 172.7 cm (5' 8") 03/20/2019 2:24 PM CDT Body Mass Index 24.95 03/24/2019 5:12 AM CDT Plan of Treatment Not on file Procedures Procedure Name Priority Date/Time Associated Comments Diagnosis RHYTHM STRIP - SCAN 03/27/2019 11:11 AM CDT (CELLAVISION MANUAL Routine 03/24/2019 5:43 Results for this DIFF) AM CDT procedure are in the results section. CBC W/PLT COUNT & AUTO Routine 03/24/2019 5:43 Results for this DIFFERENTIAL AM CDT procedure are in the results section. CORTISOL Routine 03/24/2019 5:43 Results for this AM CDT procedure are in the results section. CBC W/PLT COUNT & AUTO Routine 03/24/2019 5:43 Results for this DIFFERENTIAL AM CDT procedure are in the results section. VANCOMYCIN LEVEL, STAT 03/24/2019 12:15 Results for this TROUGH AM CDT procedure are in the results section. PROCALCITONIN Routine 03/23/2019 6:49 Results for this PM CDT procedure are in the results section. LACTIC ACID, VENOUS Routine 03/23/2019 6:48 Results for this PM CDT procedure are in the results section. BLOOD CULTURE Routine 03/23/2019 6:46 PM CDT BLOOD CULTURE Routine 03/23/2019 6:43 PM CDT TRANSFUSION SERVICE 03/23/2019 6:00 REPORT - SCAN PM CDT WOUND CULTURE + GRAM STAT 03/23/2019 3:34 Results for this STAIN PM CDT procedure are in the results section. RHYTHM STRIP - SCAN 03/23/2019 12:20 PM CDT (CELLAVISION MANUAL Routine 03/23/2019 6:37 Results for this DIFF) AM CDT procedure are in the results section. CBC W/PLT COUNT & AUTO Routine 03/23/2019 6:37 Results for this DIFFERENTIAL AM CDT procedure are in the results section. MAGNESIUM Routine 03/23/2019 6:37 Results for this AM CDT procedure are in the results section. PHOSPHORUS Routine 03/23/2019 6:37 Results for this AM CDT procedure are in the results section. BASIC METABOLIC PANEL Routine 03/23/2019 6:37 Results for this (7) AM CDT procedure are in the results section. CBC W/PLT COUNT & AUTO Routine 03/23/2019 6:37 Results for this DIFFERENTIAL AM CDT procedure are in the results section. PREPARE LEUKO-REDUCED Routine 03/22/2019 11:54 Results for this RBC PM CDT procedure are in the results section. PREPARE LEUKO-REDUCED Routine 03/22/2019 11:54 Results for this RBC PM CDT procedure are in the results section. TRANSFUSION SERVICE 03/22/2019 6:01 REPORT - SCAN PM CDT MAGNESIUM Routine 03/22/2019 1:47 Results for this PM CDT procedure are in the results section. BASIC METABOLIC PANEL Routine 03/22/2019 1:47 Results for this (7) PM CDT procedure are in the results section. VANCOMYCIN LEVEL, Timed 03/22/2019 1:47 Results for this TROUGH PM CDT procedure are in the results section. POCT-GLUCOSE METER Routine 03/22/2019 7:37 Results for this AM CDT procedure are in the results section. CBC W/PLT COUNT & AUTO Routine 03/22/2019 4:27 Results for this DIFFERENTIAL AM CDT procedure are in the results section. CBC W/PLT COUNT & AUTO Routine 03/22/2019 4:27 Results for this DIFFERENTIAL AM CDT procedure are in the results section. TRANSFUSE Routine 03/21/2019 1:38 LEUKO-REDUCED RED PM CDT BLOOD CELLS (CELLAVISION MANUAL Routine 03/21/2019 6:32 Results for this DIFF) AM CDT procedure are in the results section. CBC W/PLT COUNT & AUTO Routine 03/21/2019 6:32 Results for this DIFFERENTIAL AM CDT procedure are in the results section. CBC W/PLT COUNT & AUTO Routine 03/21/2019 6:32 Results for this DIFFERENTIAL AM CDT procedure are in the results section. BASIC METABOLIC PANEL Routine 03/21/2019 6:32 Results for this (7) AM CDT procedure are in the results section. TRANSFUSE Routine 03/21/2019 5:33 LEUKO-REDUCED RED AM CDT BLOOD CELLS OSMOLALITY, URINE Routine 03/21/2019 4:51 Results for this AM CDT procedure are in the results section. LACTIC ACID, VENOUS STAT 03/21/2019 3:15 Results for this AM CDT procedure are in the results section. TYPE AND SCREEN, Routine 03/20/2019 11:33 Results for this AUTOMATED PM CDT procedure are in the results section. COMPREHENSIVE Routine 03/20/2019 11:33 Results for this METABOLIC PANEL PM CDT procedure are in the results section. HEMOGLOBIN AND Routine 03/20/2019 11:33 Results for this HEMATOCRIT PM CDT procedure are in the results section. OSMOLALITY, SERUM Routine 03/20/2019 11:33 Results for this PM CDT procedure are in the results section. LACTIC ACID, VENOUS STAT 03/20/2019 11:33 Results for this PM CDT procedure are in the results section. PROCALCITONIN STAT 03/20/2019 8:37 Results for this PM CDT procedure are in the results section. BLOOD CULTURE STAT 03/20/2019 8:36 Results for this PM CDT procedure are in the results section. BLOOD CULTURE STAT 03/20/2019 8:36 Results for this PM CDT procedure are in the results section. POCT-LACTIC ACID, Routine 03/20/2019 7:44 Results for this VENOUS PM CDT procedure are in the results section. CREATININE, RANDOM Routine 03/20/2019 7:05 Results for this URINE PM CDT procedure are in the results section. SODIUM, RANDOM URINE Routine 03/20/2019 7:05 Results for this PM CDT procedure are in the results section. URINALYSIS W/ REFLEX STAT 03/20/2019 7:05 Results for this URINE CULTURE PM CDT procedure are in the results section. URINE CULTURE STAT 03/20/2019 7:05 Results for this PM CDT procedure are in the results section. (CELLAVISION MANUAL Routine 03/20/2019 5:50 Results for this DIFF) PM CDT procedure are in the results section. CBC W/PLT COUNT & AUTO STAT 03/20/2019 5:50 Results for this DIFFERENTIAL PM CDT procedure are in the results section. COMPREHENSIVE STAT 03/20/2019 5:50 Results for this METABOLIC PANEL PM CDT procedure are in the results section. CBC W/PLT COUNT & AUTO STAT 03/20/2019 5:50 Results for this DIFFERENTIAL PM CDT procedure are in the results section. INTRAOPERATIVE PATH 12/28/2018 5:40 REPORT - SCAN PM CDT INTRAOPERATIVE PATH 11/21/2018 4:00 REPORT - SCAN PM CDT TRANSFUSE Routine 10/26/2018 8:04 LEUKO-REDUCED RED PM CDT BLOOD CELLS TRANSFUSION SERVICE 10/26/2018 6:00 REPORT - SCAN PM CDT POCT-GLUCOSE METER Routine 10/26/2018 12:54 Results for this PM CDT procedure are in the results section. POCT-GLUCOSE METER Routine 10/26/2018 9:08 Results for this AM CDT procedure are in the results section. HEMOGLOBIN AND Routine 10/26/2018 4:46 Results for this HEMATOCRIT AM CDT procedure are in the results section. BASIC METABOLIC PANEL Routine 10/26/2018 4:46 Results for this (7) AM CDT procedure are in the results section. PREPARE RBC STAT 10/25/2018 11:54 Results for this PM CDT procedure are in the results section. PREPARE RBC STAT 10/25/2018 11:54 Results for this PM CDT procedure are in the results section. POCT-GLUCOSE METER Routine 10/25/2018 9:18 Results for this PM CDT procedure are in the results section. TRANSFUSION SERVICE 10/25/2018 6:01 REPORT - SCAN PM CDT POCT-GLUCOSE METER Routine 10/25/2018 5:22 Results for this PM CDT procedure are in the results section. POCT-GLUCOSE METER Routine 10/25/2018 12:23 Results for this PM CDT procedure are in the results section. POCT-GLUCOSE METER Routine 10/25/2018 8:51 Results for this AM CDT procedure are in the results section. HEMOGLOBIN AND Routine 10/25/2018 4:31 Results for this HEMATOCRIT AM CDT procedure are in the results section. BASIC METABOLIC PANEL Routine 10/25/2018 4:31 Results for this (7) AM CDT procedure are in the results section. HEMOGLOBIN AND STAT 10/24/2018 8:22 Results for this HEMATOCRIT PM CDT procedure are in the results section. BASIC METABOLIC PANEL STAT 10/24/2018 8:22 Results for this (7) PM CDT procedure are in the results section. HGB/HCT (H&H) - STAT STAT 10/24/2018 6:55 Results for this LAB PM CDT procedure are in the results section. GLUCOSE-STAT LAB STAT 10/24/2018 6:55 Results for this PM CDT procedure are in the results section. TRANSFUSE Routine 10/24/2018 5:39 LEUKO-REDUCED RED PM CDT BLOOD CELLS TISSUE EXAM AP Routine 10/24/2018 5:12 Results for this PM CDT procedure are in the results section. URETHROTOMY,PERINEAL 10/24/2018 1:35 Penile lesion URETHRA PM CDT Penile cancer (HCC) Case Notes 6 HRS PENECTOMY 10/24/2018 1:35 PM CDT Penile lesion Penile cancer (HCC) Case Notes 6 HRS ABORH, MANUAL STAT 10/24/2018 1:11 PM CDT POCT-GLUCOSE METER Routine 10/24/2018 12:35 PM CDT TYPE AND SCREEN, AUTOMATED Routine 10/24/2018 12:15 PM CDT CBC (HEMOGRAM ONLY) STAT 10/24/2018 12:15 PM CDT ECG 12-LEAD Routine 10/24/2018 10:59 AM CDT Procedure Note - Interface, External Ris In - 10/24/2018 11:53 AM CDT Ventricular Rate 73 BPM Atrial Rate 73 BPM P-R Interval 192 ms QRS Duration 100 ms Q-T Interval 400 ms QTC Calculation(Bazett) 440 ms P Pinon 0 degrees R Pinon -4 degrees T Pinon 19 degrees Normal sinus rhythm Normal ECG No previous ECGs available ECG 12-LEAD STAT 10/24/2018 10:59 AM CDT after 03/27/2018 Results RHYTHM STRIP - SCAN (03/27/2019 11:11 AM CDT)Only the most recent of2 resultswithin the time period is included. Narrative Performed At Cortisol (03/24/2019 5:43 AM CDT) Cortisol, Total 11.7 3.7 - 19.4 ug/dL [facility] Specimen Blood Performing Organization Address City/State/Zipcode Phone Number [facility] [address] [place] [address] CENTER Manual Differential (03/24/2019 5:43 AM CDT)Only the most recent of4 resultswithin the time period is included. % Neutros 82 % [facility] % Lymphs 1 % [facility] % Monos 5 % [facility] % Eos 11 % [facility] % Bands 1 0 - 10 % [facility] # Neutros 23.62 (H) 1.78 - 5.38 K/ul [facility] # Lymphs 0.29 (L) 1.32 - 3.57 K/ul [facility] # Monos 1.44 (H) 0.30 - 0.82 K/uL [facility] # Eos 3.17 (H) 0.04 - 0.54 K/uL [facility] # Bands 0.29 0.00 - 0.80 K/uL [facility] Total Counted 100 [facility] WBC Morphology Normal [facility] Platelet Morphology Normal [facility] Polychromasia 1+ few [facility] Hypochromia 1+ few [facility] Anisocytosis 2+ moderate [facility] Poikilocytes 2+ moderate [facility] Levering Cells 2+ moderate [facility] Artifact Present [facility] Platelet Conc Adequate [facility] Specimen Blood Narrative Performed At Received comment: [facility] User comments: Slide comments: Performing Organization Address City/[facility]/[place] Phone Number [facility] [address] [place] [address] CENTER CBC with platelet count + automated diff (03/24/2019 5:43 AM CDT)Only the most recent of5 resultswithin the time period is included. WBC 28.8 (H) 3.5 - 10.5 K/L [facility] RBC 3.33 (L) 4.63 - 6.08 M/L [facility] Hemoglobin 8.3 (L) 13.7 - 17.5 GM/DL [facility] Hematocrit 27.2 (L) 40.1 - 51.0 % [facility] MCV 81.7 79.0 - 92.2 fL [facility] MCH 24.9 (L) 25.7 - 32.2 pg [facility] MCHC 30.5 (L) 32.3 - 36.5 GM/DL [facility] RDW 22.0 (H) 11.6 - 14.4 % [facility] Platelets 410 150 - 450 K/CU MM [facility] MPV 9.1 (L) 9.4 - 12.4 fL [facility] nRBC 0 0 - 0 /100 WBC [facility] Specimen Blood Performing Organization Address City/[facility] Phone Number [address] [phone] CENTER Vancomycin level, trough (03/24/2019 12:15 AM CDT)Only the most recent of2 resultswithin the time period is included. Vancomycin Tr 15.1 10.0 - 20.0 ug/mL [facility] Specimen Blood Performing Organization Address [facility] Phone Number [address] [address] CENTER Procalcitonin (03/23/2019 6:49 PM CDT)Only the most recent of2 resultswithin the time period is included. Procalcitonin 0.37 (H) <0.05 ng/mL [facility] Specimen Blood Narrative Performed At SEPSIS RISK (ng/mL) [facility] Low:0.05-0.50 Intermediate: 0.51-2.00 High: >=2.01 Performing Organization Address [facility]/[place] Phone Number [address] [address] [phone] [place] Lactic acid, venous (03/23/2019 6:48 PM CDT)Only the most recent of3 resultswithin the time period is included. Lactate, Venous 2.4 (H) 0.5 - 2.2 mmol/L [facility] Specimen Blood Performing Organization Address [facility] Phone Number [address] [address] [place] TRANSFUSION SERVICE REPORT - SCAN (03/23/2019 6:00 PM CDT)Only the most recent of4 resultswithin the time period is included. Narrative Performed At Wound culture + gram stain (03/23/2019 3:34 PM CDT) Result No growth [facility] Gram Stain Result 1+ WBCs [facility] Gram Stain Result No organisms seen [facility] Specimen Wound - Groin, Right Narrative Performed At <1+ Skin theo [facility] Performing Organization Address City/State/Zipcode Phone Number [facility] [address] [place] [address] [phone] [place] Phosphorus (03/23/2019 6:37 AM CDT) Phosphorus 2.8 2.3 - 4.7 mg/dL [facility] Specimen Blood Performing Organization Address City/State/Zipcode Phone Number [address] [address] [place] Magnesium (03/23/2019 6:37 AM CDT)Only the most recent of2 resultswithin the time period is included. Magnesium 1.8 1.6 - 2.6 mg/dL [facility] Specimen Blood Performing Organization Address City/[facility]/Zipcode Phone Number [address] [address] [phone] [place] Basic Metabolic Panel (03/23/2019 6:37 AM CDT)Only the most recent of6 resultswithin the time period is included. Sodium 127 (L) 136 - 145 meq/L [facility] Potassium 3.8 3.5 - 5.1 meq/L [facility] Chloride 100 98 - 107 meq/L [facility] CO2 22 22 - 29 meq/L [facility] BUN 9 7 - 21 mg/dL [facility] Creatinine 0.64 0.57 - 1.25 mg/dL [facility] Glucose 97 70 - 105 mg/dL [facility] Calcium 8.1 (L) 8.4 - 10.2 mg/dL [facility] EGFR 124Comment: ESTIMATED GFR IS mL/min/1.73 sq m [facility] NOT ACCURATE CREATININE [facility] CLEARANCE IN PREDICTING GLOMERULAR FILTRATION RATE. ESTIMATED GFR IS NOT APPLICABLE FOR DIALYSIS PATIENTS. Specimen Blood Performing Organization Address City/[facility] [place] [address] CENTER Prepare Leuko-Red RBC (03/22/2019 11:54 PM CDT)Only the most recent of2 resultswithin the time period is included. CROSSMATCH COMPATIBLE [facility]AFET[facility]ACE TX Unit ABO O Pos [facility]ET[facility] TX UNIT NUMBER [id number] [facility] TX Status TX_TIMEINCHART [facility] TX Blood Bank Product RED BLOOD CELLS [facility] TX PRODUCT CODE [id number] [facility] [place] Specimen Other Performing Organization Address [facility]/[place] Phone Number SAFETRACE TX POC-Glucose meter (03/22/2019 7:37 AM CDT)Only the most recent of8 resultswithin the time period is included. POC-Glucose Meter 108Comment: TESTED AT 70 - 110 mg/dL [facility] [address] [place] [id number] Specimen Blood Performing Organization Address [facility]/[place] [address] [phone] CENTER Transfuse Leuko-Red RBC (03/21/2019 1:38 PM CDT)Only the most recent of6 resultswithin the time period is included.Osmolality, urine (03/21/2019 4:51 AM CDT) Osmolality, Ur 115 40-1,400 mOsm/kg [facility] Specimen Urine Performing Organization Address [facility]/[place] Phone Number [address] [address] [phone] CENTER Type and screen, automated (03/20/2019 11:33 PM CDT)Only the most recent of2 resultswithin the time period is included. ABO/RH AUTOMATED (BEAKER) O POSITIVE [facility] Ab Scrn NEGATIVE [facility] Specimen Blood Performing Organization Address City/[facility]/Zipcode Phone Number [facility] [address] [place] [phone] Hemoglobin and hematocrit (03/20/2019 11:33 PM CDT)Only the most recent of4 resultswithin the time period is included. Hemoglobin 5.3 (LL) 13.7 - 17.5 GM/DL [facility] Hematocrit 17.0 (L) 40.1 - 51.0 % [facility] Specimen Blood Narrative Performed At Post transfusion [facility] Performing Organization Address City/[facility]/Zipcode Phone Number [address] [address] [place] Osmolality, serum (03/20/2019 11:33 PM CDT) Osmolality Serum 270 (L) 275 - 295 mOsm/kg [facility] Specimen Blood Performing Organization Address City/[facility] Phone Number [facility] [address] [place] [phone] [place] Comprehensive metabolic panel (03/20/2019 11:33 PM CDT)Only the most recent of2 resultswithin the time period is included. Protein, Total 5.7 (L) 6.0 - 8.3 gm/dL [facility] Albumin 1.8 (L) 3.5 - 5.0 g/dL [facility] Alkaline Phosphatase 120 40 - 150 U/L [facility] Total Bilirubin 0.2 0.2 - 1.2 mg/dL [facility] Sodium 127 (L) 136 - 145 meq/L [facility] Potassium 4.0 3.5 - 5.1 meq/L [facility] Chloride 97 (L) 98 - 107 meq/L [facility] CO2 23 22 - 29 meq/L [facility] BUN 10 7 - 21 mg/dL [facility] Creatinine 0.68 0.57 - 1.25 mg/dL [facility] Glucose 103 70 - 105 mg/dL [facility] Calcium 8.1 (L) 8.4 - 10.2 mg/dL [facility] AST 19 5 - 34 U/L [facility] ALT 10 6 - 55 U/L [facility] EGFR 115Comment: ESTIMATED mL/min/1.73 sq m [facility] GFR IS NOT ACCURATE [facility] CREATININE CLEARANCE IN PREDICTING GLOMERULAR FILTRATION RATE. ESTIMATED GFR IS NOT APPLICABLE FOR DIALYSIS PATIENTS. Specimen Blood Performing Organization Address City/[facility] Phone Number [address] [address] [phone] [place] Blood Culture - Routine (Left Venipuncture) (03/20/2019 8:36 PM CDT)Only the most recent of2 resultswithin the time period is included. Result No growth in 5 days [facility] Specimen Blood Performing Organization Address [facility]/[place] Phone Number [address] [address] [phone] CENTER POC-Lactic Acid, Venous (03/20/2019 7:44 PM CDT) POC-Lactic Acid, Venous 2.5 (H)Comment: 0.9 - 1.7 mmol/L [facility] TESTED AT [address] [address] Specimen Blood Performing Organization Address [facility] Phone Number [address] [address] [place] Urinalysis w/Microscopic + Reflex to Culture (03/20/2019 7:05 PM CDT) Color, UA Yellow [facility] Clarity, UA Clear [facility] Specific [place], UA 1.006 1.001 - 1.035 [facility] pH, UA 5.5 5.0 - 8.0 [facility] Protein, UA Negative Negative [facility] Glucose, UA Negative Negative [facility] Ketones, UA Negative Negative [facility] Bilirubin, UA Negative Negative [facility] Blood, UA Small (A) Negative [facility] Nitrite, UA Negative Negative [facility] Leukocytes, UA Moderate (A) Negative [facility] Urobilinogen, UA 0.2 0.2 - 1.0 mg/dL [facility] RBC, UA 2 /HPF [facility] WBC, UA 13 /HPF [facility] Squam Epithel, UA <1 /HPF [facility] Amorphous Crystals Rare [facility] Specimen Source [facility] Specimen Urine Performing Organization Address City/[facility] Phone Number [address] [address] [phone] [place] Sodium, random urine (03/20/2019 7:05 PM CDT) Sodium Urine <20 meq/L [facility] Specimen Urine Narrative Performed At Reference Range: No Normals [facility] Performing Organization Address City/[facility]/Zipcode Phone Number [address] [address] CENTER Creatinine, random urine (03/20/2019 7:05 PM CDT) Creatinine, Ur 57.8 mg/dL [facility] Specimen Urine Narrative Performed At Reference Range: No Normals [facility] Performing Organization Address City/State/Zipcode Phone Number [address] [address] [phone] [place] Urine culture (03/20/2019 7:05 PM CDT) Result >100,000 col/mL skin theo [facility] Specimen Urine Performing Organization Address [facility] Phone Number [address] [address] [phone] [place] INTRAOPERATIVE PATH REPORT - SCAN (12/28/2018 5:40 PM CDT)Only the most recent of2 resultswithin the time period is included. Narrative Performed At Prepare RBC (10/25/2018 11:54 PM CDT)Only the most recent of2 resultswithin the time period is included. CROSSMATCH COMPATIBLE [facility]AFET[facility] TX Unit ABO O Pos [facility] TX UNIT NUMBER [id number] [facility] [place] Status TX_TIMEINCHART [facility] [place] Blood Bank Product RED BLOOD CELLS [facility] [place] PRODUCT CODE [id number] [facility] [place] Performing Organization Address [facility]/[place] Phone Number [facility] [place] Glucose-Stat Lab (10/24/2018 6:55 PM CDT) Glucose 106 70 - 110 mg/dL [facility] Specimen Blood, Arterial Performing Organization Address [facility]/[place] Phone Number [address] [address] [place] HGB/HCT (H&H)-Stat Lab (10/24/2018 6:55 PM CDT) Hemoglobin 8.1 (L) 13.0 - 16.8 g/dL [facility] Hematocrit 24.0 (L) 40.0 - 50.0 % [facility] Specimen Blood, Arterial Performing Organization Address [facility] Phone Number [address] [address] [place] Tissue Exam (10/24/2018 5:12 PM CDT) Case Report Surgical Pathology Report Case: [id number] [facility] Authorizing Provider:Tripp Luis MD Collected: 10/24/2018 1712 [facility] Location: [facility] PERIOPERATIVE Received: 10/24/2018 1719 [facility] Pathologist: Arya Barrera MD Specimens: A) - Urethra, Distal urethral margin B) - Penis, Total Penectomy DIAGNOSIS A. URETHRA, DISTAL MARGIN, EXCISION: [facility] - NEGATIVE FOR MALIGNANCY [facility] B. PENIS, TOTAL PENECTOMY: - INVASIVE MODERATELY DIFFERENTIATED SQUAMOUS CELL CARCINOMA - TUMOR INVOLVES THE GLANS PENIS, DISTAL HALF OF THE PENILE SHAFT INCLUDING URETHRA, BOTH CORPORA CAVERNOSA AND CORPUS SPONGIOSUM, AND EXTENDING TO THE SUBCUTANEOUS SOFT TISSUE OF THE SKIN - TUMOR MEASURES 6.3 X 5.0 X 4.0 CM - TUMOR THICKNESS: 3.6 CM - RESECTION MARGINS, NEGATIVE FOR MALIGNANCY - LYMPHOVASCULAR INVASION IS PRESENT - EXTENSIVE PERINEURAL INVASION IS PRESENT - AJCC PATHOLOGOC STAGING (8TH EDITION): [id number] - SEBORRHEIC KERATOSES Signing Pathologist Direct Phone Line: [phone] COMMENT The tumor is centered around the urethra and shows areas of annika intraluminal tumor. Focal areas of keratinization are noted. Immunostain for p40 is positive, while DERRICK-3 is negative. Overall, the mor [facility] phologic features and the immunophenotypic findings are consistent with a squamous cell carcinoma. [facility] Sections from the corpora cavernosa at the proximal transected edge shows detached fragments of tumor without accompanying tissue response, which is favored to be floater. SYNOPTIC REPORT PENIS(Penis - All Specimens) [facility] SPECIMEN Procedure:Total penectomy Foreskin:Present (uncircumcised) :Phimotic TUMOR Tumor Site:Glans Tumor Site:Coronal sulcus (balanopreputial sulcus) Tumor Site:Shaft Tumor Site:Penile urethra Tumor Macroscopic Features:Ulcerated Tumor Macroscopic Features:Polypoid Tumor Macroscopic Features:Verruciform Histologic Type:Squamous cell carcinoma, usual type Histologic Grade:G2 Tumor Size:Greatest dimension in Centimeters (cm): 6.3 Centimeters (cm) Additional Dimension in Centimeters (cm):5 Centimeters (cm) Additional Dimension in Centimeters (cm):4 Centimeters (cm) Tumor Thickness / Depth of Invasion in Millimeters (mm):3.6 Millimeters (mm) Tumor Deep Borders:Pushing (broadly based) Tumor Focality:Unifocal Tumor Extent: Tumor Extension:Tumor invades dartos fascia Tumor Extension:Tumor invades corpus spongiosum Tumor Extension:Tumor invades corpus cavernosum Tumor Extension:Tumor invades tunica albuginea Tumor Extension:Tumor invades penile (distal) urethra Accessory Findings: Lymphovascular Invasion:Present Perineural Invasion:Present MARGINS Margins:Uninvolved LYMPH NODES Regional Lymph Nodes:No lymph nodes submitted or found PATHOLOGIC STAGE CLASSIFICATION (pTNM, AJCC 8th Edition) TNM Descriptors:Not applicable Primary Tumor (pT):pT3 Regional Lymph Nodes (pN):pNX ADDITIONAL FINDINGS Additional Pathologic Findings:Lichen sclerosus CPT Code(s) 41256 [facility] [address] [id number] CLINICAL HISTORY Penile mass [facility] SPECIMEN SOURCE A. Perineal urethra; Penis [facility] GROSS DESCRIPTION A. Received fresh for intraoperative consultation labeled "urethra" and consists of a 1.2 x 0.7 x 0.4 cm round pink soft tissue with a central slit-like patent lumen measuring 0.3 cm in diameter. The sp [facility] ecimen is submitted entirely in a single cassette FSA for frozen section evaluation. [place] B: Received in formalin labeled "total radical penectomy" is a 16 x 5.5 x 6 cm penectomy specimen. The glans penis measures 6.2 x 6.3 x 7.3 cm. The penile shaft measures 10 x 3.2 x 2.9 cm. The proximal portion of the shaft is devoid of skin and subcutaneous tissue and measures 8 x 3 x 2.2 cm. No urethra/ periurethral cylinder of penile tissue is identified in the proximal half of the specimen. The ski n measures [id number] x 8.5 x 7.5 cm. The urethra measures 7.5 cm in length and average of 0.4 cm in diameter. The specimen is bivalved along the longitudinal axis to reveal a 6.3 x 5 x 4 cm hanna-white firm irregular exophytic friable unifocal ulcerated and infiltrative mass involving glans penis and the distal h intermediate of the penile shaft. The foreskin appears phimotic. The tumor grossly involves the distal end of the penis, is 1.5 cm from the nearest skin margin and 9.5 cm from the proximal shaft/corporal margin. The urethra is probe-patent and shows intraluminal tumor. The tumor grossly involves both corpus cavernosa and spongiosa. The maximum tumor thickness 3.6 cm. The tumor is grossly present at the distal urethral/periurethral transected surface. The overlying skin is hanna-white, hair-bearing and appears grossly un-involved by tumor. There is a 0.5 cm in diameter round exophytic dark warty like lesion on the dorsal aspect of the penis, 6.5 cm from the distal end. Ink code: blue, urethral lumen; yellow, possible distal urethral margin; blue ink is also skin margin from 12:00 to 3:00, skin from 3:00 to 6:00 is red. Skin from 6:00 to 9:00 is black. Skin from 9:00 to 12:00 is green. Section code: B1 through B7 skin margin entirely and sequentially submitted as follows: B1, B2, 12:00 to 3:00; B3 and B4, 3:00 to 6:00; B5 and B6, 6:00 to 9 :00; B7 9:00 to 12:00 (two pieces); B8, shaft margin en face, right; B9, shaft margin, en face, left; B10 and B11, possible distal urethral resection margin, right and left respectively; B12 and B13, B14 and B15, tumor to urethra and underling tamir ora and skin, two fullthickness sections bisected(left half); B16 through B18 , tumor to urethra, underlying corpora and skin, trisected (right half); B19 and B20, section full-thickness adjacent to sect ion B16 to B18, bisected; B21 and B22, possible tumor to tunica albuginea, right half, full thickness, bisected'; B23 and B24, full-thickness section proximal to the tumor, right half, bisected; B25, fu ll-thickness section at the possible proximal urethral surface, right half; B26 and B27, additional full-thickness section, left half, proximal to the tumor ; B28, dorsal skin warty lesion, bisected; B29, tumor to skin additional. MA/ pl INTRAOPERATIVE PART 1, AFS - DISTAL URETHRAL MARGIN: [facility] CONSULTATION - NEGATIVE FOR CARCINOMA [facility] Reported by Dr. Tejeda to Dr. Luis on 10/24/18 at 4.21 PM. MICROSCOPIC DESCRIPTION Performed. [facility] SPECIAL STUDIES The interpretation of this case included the use of immunohistochemistry or special stains. [facility] Immunohistochemistry technical testing was performed at [facility], Pathology Laboratory where it was developed and its performance characteristics were determined. It has not be CENTER en cleared or approved by the U.S. Food and Drug Administration. The FDA has determined that such clearance or approval is not necessary. The test is used for clinical purposes. It should not be regarde d as investigational or for research. This laboratory is certified under the Clinical Laboratory Improvement Amendments of 1988 (CLIA-88) as qualified to perform high complexity clinical laboratory testing. Specimen Tissue Tissue - Penile structure (body structure) Performing Organization Address City/[facility]/Zipcode Phone Number [address] [address] CENTER [place], manual (10/24/2018 1:11 PM CDT) ABO Grouping O [facility] Rh Factor POS [facility] Specimen Blood Performing Organization Address [facility]/Zipcode Phone Number [address] [address] CBC (Hemogram only) (10/24/2018 12:15 PM CDT) WBC 14.6 (H) 3.5 - 10.5 K/L [facility] RBC 3.21 (L) 4.63 - 6.08 M/L [facility] Hemoglobin 7.4 (L) 13.7 - 17.5 GM/DL [facility] Hematocrit 25.5 (L) 40.1 - 51.0 % [facility] MCV 79.4 79.0 - 92.2 fL [facility] MCH 23.1 (L) 25.7 - 32.2 pg [facility] MCHC 29.0 (L) 32.3 - 36.5 GM/DL [facility] RDW 26.3 (H) 11.6 - 14.4 % [facility] Platelets 564 (H) 150 - 450 K/CU MM [facility] MPV 8.5 (L) 9.4 - 12.4 fL [facility] nRBC 0 0 - 0 /100 WBC [facility] Specimen Blood Performing Organization Address City/State/Zipcode Phone Number [facility] [address] [place] [address] CENTER ECG 12 lead (10/24/2018 10:59 AM CDT) Specimen Narrative Performed At Ventricular Rate 73 BPM GE MUSE Atrial Rate 73 BPM P-R Interval 192 ms QRS Duration 100 ms Q-T Interval 400 ms QTC Calculation(Bazett) 440 ms P Pinon 0 degrees R Pinon -4 degrees T Pinon 19 degrees Normal sinus rhythm Normal ECG No previous ECGs available Confirmed by MD TANMAY, LIZA ([id number]) on 10/25/2018 6:28:52 AM Procedure Note Interface, External Ris In - 10/25/2018 6:29 AM CDT Ventricular Rate 73 BPM Atrial Rate 73 BPM P-R Interval 192 ms QRS Duration 100 ms Q-T Interval 400 ms QTC Calculation(Bazett) 440 ms P Pinon 0 degrees R Pinon -4 degrees T Pinon 19 degrees Normal sinus rhythm Normal ECG No previous ECGs available Confirmed by MD DONATO YOCHAI ([id number]) on 10/25/2018 6:28:52 AM Performing Organization Address City/State/Zipcode Phone Number GE MUSE after 03/27/2018 Insurance Payer Benefit Plan / Group Subscriber ID Type Phone Address MEDICARE MEDICARE A B xxxxxxxxxxx Medicare CIG[employer] - COMMERCIAL CIGNA INDEMNITY xxxxxxxxxx Comm Advance Directives Patient has advance care planning documents, and code status on file. For more information, please contact:[place] [phone] [place], [place] [phone] Code Status Date Activated Date Inactivated Comments Full Code 03/20/2019 8:30 PM 03/24/2019 5:10 PM This code status was determined by: Patient Full Code 10/24/2018 9:53 PM 10/26/2018 6:04 PM This code status was determined by: Patient
--- OUTSIDE RECORDS SUMMARY | 2019-03-28 11:17 | XMS REPORT ---
:1950 [facility] Organization [facility] Address [address] [place] [address] Care Team Providers Name Role Phone YO HOWARD Unavailable Unavailable CEFERINO GLEZ Unavailable Unavailable Problems This patient has no known problems. Allergies, Adverse Reactions, Alerts This patient has no known allergies or adverse reactions. Medications This patient has no known medications. Results Test Description Test Time Test Comments Text Results Atomic Results Result Comments BLOOD CULTURE 2019-03-26 02:01:00 Test Item Value Reference Range Comments CULTURE (BEAKER) (test ebcr=9348) No growth in 5 days BLOOD [id number] 02:01:00 Test Item Value Reference Range Comments CULTURE (BEAKER) (test umhg=1053) No growth in 5 days WOUND CULTURE + GRAM [id number] 12:21:00 Test Item Value Reference Range Comments CULTURE (BEAKER) (test grfz=9202) No growth GRAM STAIN RESULT (BEAKER) (test 1+ WBCs smeo=2837) GRAM STAIN RESULT (BEAKER) (test No organisms seen kiyx=65883) <1+ Skin floraCBC W/PLT COUNT & AUTO [id number] 12:24:00 Test Item Value Reference Range Comments WHITE BLOOD CELL COUNT (BEAKER) (test wchg=756) 28.8 K/ L 3.5-10.5 RED BLOOD CELL COUNT (BEAKER) (test bgqj=060) 3.33 M/ L 4.63-6.08 HEMOGLOBIN (BEAKER) (test whhi=224) 8.3 GM/DL 13.7-17.5 HEMATOCRIT (BEAKER) (test iiva=700) 27.2 % 40.1-51.0 MEAN CORPUSCULAR VOLUME (BEAKER) (test gvik=870) 81.7 fL 79.0-92.2 MEAN CORPUSCULAR HEMOGLOBIN (BEAKER) (test 24.9 pg 25.7-32.2 bucp=644) MEAN CORPUSCULAR HEMOGLOBIN CONC (BEAKER) (test 30.5 GM/DL 32.3-36.5 qylk=681) RED CELL DISTRIBUTION WIDTH (BEAKER) (test 22.0 % 11.6-14.4 nkfa=897) PLATELET COUNT (BEAKER) (test gzef=436) 410 K/CU MM 150-450 MEAN PLATELET VOLUME (BEAKER) (test aigp=729) 9.1 fL 9.4-12.4 NUCLEATED RED BLOOD CELLS (BEAKER) (test 0 /100 WBC 0-0 vxdg=300) (CELLAVISION MANUAL DIFF)2019-03-24 12:24:00 Test Item Value Reference Range Comments NEUTROPHILS - REL (CELLAVISION)(BEAKER) (test 82 % xiba=3548) LYMPHOCYTES - REL (CELLAVISION)(BEAKER) (test 1 % zrae=7732) MONOCYTES - REL (CELLAVISION)(BEAKER) (test 5 % pnss=7551) EOSINOPHILS - REL (CELLAVISION)(BEAKER) (test 11 % niwt=1812) BANDS - REL (CELLAVISION)(BEAKER) (test 1 % 0-10 aved=6164) NEUTROPHILS - ABS (CELLAVISION)(BEAKER) (test 23.62 K/ul 1.78-5.38 sypv=5745) LYMPHOCYTES - ABS (CELLAVISION)(BEAKER) (test 0.29 K/ul 1.32-3.57 tdjw=2793) MONOCYTES - ABS (CELLAVISION)(BEAKER) (test 1.44 K/uL 0.30-0.82 znrq=6145) EOSINOPHILS - ABS (CELLAVISION)(BEAKER) (test 3.17 K/uL 0.04-0.54 zqrs=7369) BANDS - ABS (CELLAVISION)(BEAKER) (test 0.29 K/uL 0.00-0.80 lagx=7828) TOTAL COUNTED (BEAKER) (test rwna=3922) 100 WBC MORPHOLOGY (BEAKER) (test gcrt=621) Normal PLT MORPHOLOGY (BEAKER) (test occr=767) Normal POLYCHROMATOPHILLIC RBCS(BEAKER) (test lfvt=228) 1+ few HYPOCHROMIA (BEAKER) (test mfmq=304) 1+ few ANISOCYTOSIS (BEAKER) (test syxe=581) 2+ moderate POIKILOCYTES (BEAKER) (test gszt=859) 2+ moderate EVERT CELLS (BEAKER) (test lvvo=604) 2+ moderate ARTIFACT (CELLAVISION)(BEAKER) (test lnmj=3729) Present PLATELET CONCENTRATION (CELLAVISION)(BEAKER) Adequate (test nvxj=9728) Received comment: User comments: Slide comments:[id number] 07:13:00 Test Item Value Reference Range Comments CORTISOL, TOTAL (BEAKER) (test kgys=6584) 11.7 ug/dL 3.7-19.4 VANCOMYCIN LEVEL, [id number] 01:06:00 Test Item Value Reference Range Comments VANCOMYCIN TROUGH (BEAKER) (test xelq=137) 15.1 ug/mL 10.0-20.0 [id number] 20:18:00 Test Item Value Reference Range Comments PROCALCITONIN (BEAKER) (test frub=3784) 0.37 ng/mL <0.05 SEPSIS RISK (ng/mL)Low: 0.05-0.50Intermediate: 0.51-2.00High: & gt;=2.01LACTIC ACID, [id number] 19:13:00 Test Item Value Reference Range Comments LACTATE BLOOD VENOUS (2) (BEAKER) (test 2.4 mmol/L 0.5-2.2 ntyh=9252) CBC W/PLT COUNT & AUTO [id number] 08:54:00 Test Item Value Reference Range Comments WHITE BLOOD CELL COUNT (BEAKER) (test khla=947) 28.5 K/ L 3.5-10.5 RED BLOOD CELL COUNT (BEAKER) (test wpwi=149) 3.06 M/ L 4.63-6.08 HEMOGLOBIN (BEAKER) (test zfhp=243) 7.8 GM/DL 13.7-17.5 HEMATOCRIT (BEAKER) (test fbka=783) 24.1 % 40.1-51.0 MEAN CORPUSCULAR VOLUME (BEAKER) (test jutk=833) 78.8 fL 79.0-92.2 MEAN CORPUSCULAR HEMOGLOBIN (BEAKER) (test 25.5 pg 25.7-32.2 mgiv=767) MEAN CORPUSCULAR HEMOGLOBIN CONC (BEAKER) (test 32.4 GM/DL 32.3-36.5 yqqs=688) RED CELL DISTRIBUTION WIDTH (BEAKER) (test 21.3 % 11.6-14.4 doiy=950) PLATELET COUNT (BEAKER) (test ojgi=559) 410 K/CU MM 150-450 MEAN PLATELET VOLUME (BEAKER) (test wybd=941) 8.3 fL 9.4-12.4 NUCLEATED RED BLOOD CELLS (BEAKER) (test 0 /100 WBC 0-0 flht=187) (CELLAVISION MANUAL DIFF)2019-03-23 08:54:00 Test Item Value Reference Range Comments NEUTROPHILS - REL (CELLAVISION)(BEAKER) (test 81 % qxqh=1923) LYMPHOCYTES - REL (CELLAVISION)(BEAKER) (test 2 % fziv=6404) MONOCYTES - REL (CELLAVISION)(BEAKER) (test 3 % ymhn=9876) EOSINOPHILS - REL (CELLAVISION)(BEAKER) (test 14 % gufk=6372) NEUTROPHILS - ABS (CELLAVISION)(BEAKER) (test 23.09 K/ul 1.78-5.38 nuyk=1182) LYMPHOCYTES - ABS (CELLAVISION)(BEAKER) (test 0.57 K/ul 1.32-3.57 yogq=5295) MONOCYTES - ABS (CELLAVISION)(BEAKER) (test 0.86 K/uL 0.30-0.82 dsiu=9957) EOSINOPHILS - ABS (CELLAVISION)(BEAKER) (test 3.99 K/uL 0.04-0.54 aqeb=3263) TOTAL COUNTED (BEAKER) (test hxhk=8459) 100 WBC MORPHOLOGY (BEAKER) (test zvlj=108) Normal LARGE PLT(BEAKER) (test fxvr=6725) Present POLYCHROMATOPHILLIC RBCS(BEAKER) (test anvd=397) 1+ few ANISOCYTOSIS (BEAKER) (test btwu=053) 1+ few MICROCYTES (BEAKER) (test ydft=775) 1+ few POIKILOCYTES (BEAKER) (test ylfg=341) 3+ many OVALOCYTES (BEAKER) (test zziw=607) 1+ few TEAR DROP CELLS (BEAKER) (test nfxu=313) 1+ few EVERT CELLS (BEAKER) (test pliy=301) 2+ moderate ARTIFACT (CELLAVISION)(BEAKER) (test qylu=2742) Present PLATELET CONCENTRATION (CELLAVISION)(BEAKER) Increased (test jugu=7068) Received comment: User comments: Slide comments:[id number] 07:32:00 Test Item Value Reference Range Comments PHOSPHORUS (BEAKER) (test wvgs=447) 2.8 mg/dL 2.3-4.7 [id number] 07:32:00 Test Item Value Reference Range Comments MAGNESIUM (BEAKER) (test kioj=480) 1.8 mg/dL 1.6-2.6 BASIC METABOLIC [id number] 07:32:00 Test Item Value Reference Range Comments SODIUM (BEAKER) (test 127 meq/L 136-145 fgbk=423) POTASSIUM (BEAKER) (test 3.8 meq/L 3.5-5.1 wdxr=981) CHLORIDE (BEAKER) (test 100 meq/L 98-107 llvo=144) CO2 (BEAKER) (test 22 meq/L 22-29 husx=437) BLOOD UREA NITROGEN 9 mg/dL 7-21 (BEAKER) (test egxh=195) CREATININE (BEAKER) (test 0.64 mg/dL 0.57-1.25 agpg=468) GLUCOSE RANDOM (BEAKER) 97 mg/dL 70-105 (test slyb=265) CALCIUM (BEAKER) (test 8.1 mg/dL 8.4-10.2 qarr=070) EGFR (BEAKER) (test 124 mL/min/1.73 sq m ESTIMATED GFR IS NOT hsim=4175) ACCURATE CREATININE CLEARANCE IN PREDICTING GLOMERULAR FILTRATION RATE. ESTIMATED GFR IS NOT APPLICABLE FOR DIALYSIS PATIENTS. [id number] 15:17:00 Test Item Value Reference Range Comments MAGNESIUM (BEAKER) (test trgt=593) 1.7 mg/dL 1.6-2.6 BASIC METABOLIC [id number] 15:17:00 Test Item Value Reference Range Comments SODIUM (BEAKER) (test 127 meq/L 136-145 mrqi=368) POTASSIUM (BEAKER) (test 3.8 meq/L 3.5-5.1 olap=864) CHLORIDE (BEAKER) (test 99 meq/L 98-107 ijha=936) CO2 (BEAKER) (test 22 meq/L 22-29 eiqu=609) BLOOD UREA NITROGEN 9 mg/dL 7-21 (BEAKER) (test rkuw=401) CREATININE (BEAKER) (test 0.70 mg/dL 0.57-1.25 mbfm=388) GLUCOSE RANDOM (BEAKER) 141 mg/dL 70-105 (test ysit=514) CALCIUM (BEAKER) (test 8.1 mg/dL 8.4-10.2 kvig=657) EGFR (BEAKER) (test 111 mL/min/1.73 sq m ESTIMATED GFR IS NOT cdyk=4964) ACCURATE CREATININE CLEARANCE IN PREDICTING GLOMERULAR FILTRATION RATE. ESTIMATED GFR IS NOT APPLICABLE FOR DIALYSIS PATIENTS. VANCOMYCIN LEVEL, [id number] 14:38:00 Test Item Value Reference Range Comments VANCOMYCIN TROUGH (BEAKER) (test gvtr=041) 10.9 ug/mL 10.0-20.0 POCT-GLUCOSE [id number] 07:43:00 Test Item Value Reference Range Comments POC-GLUCOSE METER (BEAKER) 108 mg/dL 70-[address] [facility] [address], [place] (test bnmy=1106) [facility] [address] CBC W/PLT COUNT & AUTO [id number] 06:13:00 Test Item Value Reference Range Comments WHITE BLOOD CELL COUNT (BEAKER) (test cwka=923) 27.3 K/ L 3.5-10.5 RED BLOOD CELL COUNT (BEAKER) (test glhd=766) 3.26 M/ L 4.63-6.08 HEMOGLOBIN (BEAKER) (test ublg=139) 8.1 GM/DL 13.7-17.5 HEMATOCRIT (BEAKER) (test mhsq=452) 25.6 % 40.1-51.0 MEAN CORPUSCULAR VOLUME (BEAKER) (test lplr=842) 78.5 fL 79.0-92.2 MEAN CORPUSCULAR HEMOGLOBIN (BEAKER) (test 24.8 pg 25.7-32.2 puhx=336) MEAN CORPUSCULAR HEMOGLOBIN CONC (BEAKER) (test 31.6 GM/DL 32.3-36.5 ouck=575) RED CELL DISTRIBUTION WIDTH (BEAKER) (test 20.7 % 11.6-14.4 nsal=687) PLATELET COUNT (BEAKER) (test ksve=754) 488 K/CU MM 150-450 MEAN PLATELET VOLUME (BEAKER) (test ymtw=835) 8.4 fL 9.4-12.4 NUCLEATED RED BLOOD CELLS (BEAKER) (test 0 /100 WBC 0-0 lbno=468) NEUTROPHILS RELATIVE PERCENT (BEAKER) (test 70 % lzru=099) LYMPHOCYTES RELATIVE PERCENT (BEAKER) (test 7 % gctp=295) MONOCYTES RELATIVE PERCENT (BEAKER) (test 8 % eefx=332) EOSINOPHILS RELATIVE PERCENT (BEAKER) (test 13 % kqqt=138) BASOPHILS RELATIVE PERCENT (BEAKER) (test 1 % asmd=121) NEUTROPHILS ABSOLUTE COUNT (BEAKER) (test 19.17 K/ L 1.78-5.38 czdj=117) LYMPHOCYTES ABSOLUTE COUNT (BEAKER) (test 1.78 K/ L 1.32-3.57 rxlf=358) MONOCYTES ABSOLUTE COUNT (BEAKER) (test 2.12 K/ L 0.30-0.82 dopd=262) EOSINOPHILS ABSOLUTE COUNT (BEAKER) (test 3.63 K/ L 0.04-0.54 vygn=642) BASOPHILS ABSOLUTE COUNT (BEAKER) (test 0.14 K/ L 0.01-0.08 pfpy=425) IMMATURE GRANULOCYTES-RELATIVE PERCENT (BEAKER) 2 % 0-1 (test vtga=4781) CBC W/PLT COUNT & AUTO [id number] 11:48:00 Test Item Value Reference Range Comments WHITE BLOOD CELL COUNT (BEAKER) (test hnar=315) 23.4 K/ L 3.5-10.5 RED BLOOD CELL COUNT (BEAKER) (test ozuj=707) 2.61 M/ L 4.63-6.08 HEMOGLOBIN (BEAKER) (test yrqa=580) 6.4 GM/DL 13.7-17.5 HEMATOCRIT (BEAKER) (test hxwd=450) 19.8 % 40.1-51.0 MEAN CORPUSCULAR VOLUME (BEAKER) (test osfy=900) 75.9 fL 79.0-92.2 MEAN CORPUSCULAR HEMOGLOBIN (BEAKER) (test 24.5 pg 25.7-32.2 yual=885) MEAN CORPUSCULAR HEMOGLOBIN CONC (BEAKER) (test 32.3 GM/DL 32.3-36.5 keim=667) RED CELL DISTRIBUTION WIDTH (BEAKER) (test 20.4 % 11.6-14.4 twvx=198) PLATELET COUNT (BEAKER) (test uzju=180) 418 K/CU MM 150-450 MEAN PLATELET VOLUME (BEAKER) (test nomn=888) 8.2 fL 9.4-12.4 NUCLEATED RED BLOOD CELLS (BEAKER) (test 0 /100 WBC 0-0 wpvx=029) (CELLAVISION MANUAL DIFF)2019-03-21 11:48:00 Test Item Value Reference Range Comments NEUTROPHILS - REL (CELLAVISION)(BEAKER) (test 75 % hvqn=5552) LYMPHOCYTES - REL (CELLAVISION)(BEAKER) (test 3 % ibil=8985) MONOCYTES - REL (CELLAVISION)(BEAKER) (test 5 % ikze=1222) EOSINOPHILS - REL (CELLAVISION)(BEAKER) (test 15 % vyij=4545) BASOPHILS - REL (CELLAVISION)(BEAKER) (test 1 % kqfi=3541) BANDS - REL (CELLAVISION)(BEAKER) (test 1 % 0-10 iwlh=6253) NEUTROPHILS - ABS (CELLAVISION)(BEAKER) (test 17.55 K/ul 1.78-5.38 oodz=9019) LYMPHOCYTES - ABS (CELLAVISION)(BEAKER) (test 0.70 K/ul 1.32-3.57 mxzx=6709) MONOCYTES - ABS (CELLAVISION)(BEAKER) (test 1.17 K/uL 0.30-0.82 lqqr=7732) EOSINOPHILS - ABS (CELLAVISION)(BEAKER) (test 3.51 K/uL 0.04-0.54 jlno=6606) BASOPHILS - ABS (CELLAVISION)(BEAKER) (test 0.23 K/uL 0.01-0.08 jkcq=4495) BANDS - ABS (CELLAVISION)(BEAKER) (test 0.23 K/uL 0.00-0.80 vgqp=2950) TOTAL COUNTED (BEAKER) (test bqdi=6518) 100 WBC MORPHOLOGY (BEAKER) (test viou=917) Normal PLT MORPHOLOGY (BEAKER) (test cabt=130) Normal POLYCHROMATOPHILLIC RBCS(BEAKER) (test wqos=376) 3+ many ANISOCYTOSIS (BEAKER) (test bgeu=103) 1+ few MICROCYTES (BEAKER) (test ldlq=577) 1+ few ARTIFACT (CELLAVISION)(BEAKER) (test jyjp=2727) Present PLATELET CONCENTRATION (CELLAVISION)(BEAKER) Adequate (test pnwp=2935) Received comment: User comments: Slide comments:BASIC METABOLIC [id number] 08:00:00 Test Item Value Reference Range Comments SODIUM (BEAKER) (test 129 meq/L 136-145 vgin=278) POTASSIUM (BEAKER) (test 4.1 meq/L 3.5-5.1 eagf=095) CHLORIDE (BEAKER) (test 100 meq/L 98-107 zbhq=230) CO2 (BEAKER) (test 23 meq/L 22-29 hrzg=790) BLOOD UREA NITROGEN 10 mg/dL 7-21 (BEAKER) (test lidn=814) CREATININE (BEAKER) (test 0.63 mg/dL 0.57-1.25 rixd=591) GLUCOSE RANDOM (BEAKER) 100 mg/dL 70-105 (test bqkr=709) CALCIUM (BEAKER) (test 8.4 mg/dL 8.4-10.2 xqac=252) EGFR (BEAKER) (test 126 mL/min/1.73 sq m ESTIMATED GFR IS NOT zrxg=9954) ACCURATE CREATININE CLEARANCE IN PREDICTING GLOMERULAR FILTRATION RATE. ESTIMATED GFR IS NOT APPLICABLE FOR DIALYSIS PATIENTS. OSMOLALITY, [id number] 07:06:00 Test Item Value Reference Range Comments OSMOLALITY URINE (BEAKER) (test lssw=534) 115 mOsm/kg 40-1,400 LACTIC ACID, [id number] 03:39:00 Test Item Value Reference Range Comments LACTATE BLOOD VENOUS (2) (BEAKER) (test 1.3 mmol/L 0.5-2.2 ieou=5066) OSMOLALITY, [id number] 01:10:00 Test Item Value Reference Range Comments OSMOLALITY, SERUM (BEAKER) (test cvro=720) 270 mOsm/kg 275-295 HEMOGLOBIN AND [id number] 00:09:00 Test Item Value Reference Range Comments HEMOGLOBIN (BEAKER) (test qzrz=311) 5.3 GM/DL 13.7-17.5 HEMATOCRIT (BEAKER) (test akqq=499) 17.0 % 40.1-51.0 Post transfusionCOMPREHENSIVE METABOLIC [id number] 00:03:00 Test Item Value Reference Range Comments TOTAL PROTEIN (BEAKER) 5.7 gm/dL 6.0-8.3 (test woky=041) ALBUMIN (BEAKER) (test 1.8 g/dL 3.5-5.0 venh=9457) ALKALINE PHOSPHATASE 120 U/L 40-150 (BEAKER) (test linc=673) BILIRUBIN TOTAL (BEAKER) 0.2 mg/dL 0.2-1.2 (test ebim=774) SODIUM (BEAKER) (test 127 meq/L 136-145 pvjv=599) POTASSIUM (BEAKER) (test 4.0 meq/L 3.5-5.1 alrh=190) CHLORIDE (BEAKER) (test 97 meq/L 98-107 xoot=667) CO2 (BEAKER) (test 23 meq/L 22-29 ighf=924) BLOOD UREA NITROGEN 10 mg/dL 7-21 (BEAKER) (test tipz=022) CREATININE (BEAKER) (test 0.68 mg/dL 0.57-1.25 jcuq=375) GLUCOSE RANDOM (BEAKER) 103 mg/dL 70-105 (test uity=594) CALCIUM (BEAKER) (test 8.1 mg/dL 8.4-10.2 esao=569) AST (SGOT) (BEAKER) (test 19 U/L 5-34 zypz=164) ALT (SGPT) (BEAKER) (test 10 U/L 6-55 jsln=759) EGFR (BEAKER) (test 115 mL/min/1.73 sq ESTIMATED GFR IS NOT jlhx=2176) m ACCURATE CREATININE CLEARANCE IN PREDICTING GLOMERULAR FILTRATION RATE. ESTIMATED GFR IS NOT APPLICABLE FOR DIALYSIS PATIENTS. LACTIC ACID, [id number] 23:54:00 Test Item Value Reference Range Comments LACTATE BLOOD VENOUS (2) (BEAKER) (test 2.0 mmol/L 0.5-2.2 gpco=4255) CREATININE, RANDOM [id number] 22:45:00 Test Item Value Reference Range Comments CREATININE URINE (BEAKER) (test qvvt=603) 57.8 mg/dL Reference Range: No NormalsSODIUM, RANDOM [id number] 22:25:00 Test Item Value Reference Range Comments SODIUM URINE (BEAKER) (test dgoc=261) < meq/L Reference Range: No [id number] 21:20:00 Test Item Value Reference Range Comments PROCALCITONIN (BEAKER) (test ctsc=3090) 0.20 ng/mL <0.05 SEPSIS RISK (ng/mL)Low: 0.05-0.50Intermediate: 0.51-2.00High: & gt;=2.01POCT-LACTIC ACID, [id number] 19:54:00 Test Item Value Reference Range Comments POC-LACTIC ACID, VENOUS 2.5 mmol/L 0.9-1.[address] [facility] [address] [place] (BEAKER) (test jsic=8702) [facility] [address] URINALYSIS W/ REFLEX URINE [id number] 19:17:00 Test Item Value Reference Range Comments COLOR (BEAKER) (test fsbv=935) Yellow CLARITY (BEAKER) (test ypjp=776) Clear SPECIFIC GRAVITY UA (BEAKER) (test qiee=576) 1.006 1.001-1.035 PH UA (BEAKER) (test esrv=205) 5.5 5.0-8.0 PROTEIN UA (BEAKER) (test kqyy=922) Negative Negative GLUCOSE UA (BEAKER) (test vimw=345) Negative Negative KETONES UA (BEAKER) (test issj=160) Negative Negative BILIRUBIN UA (BEAKER) (test ntwx=146) Negative Negative BLOOD UA (BEAKER) (test rezw=691) Small Negative NITRITE UA (BEAKER) (test kkhw=067) Negative Negative LEUKOCYTE ESTERASE UA (BEAKER) (test eknz=084) Moderate Negative UROBILINOGEN UA (BEAKER) (test lfaa=860) 0.2 mg/dL 0.2-1.0 RBC UA (BEAKER) (test umey=987) 2 /HPF WBC UA (BEAKER) (test zjom=422) 13 /HPF SQUAMOUS EPITHELIAL (BEAKER) (test hmlx=212) < /HPF AMORPHOUS CRYSTALS (BEAKER) (test cfjz=8827) Rare SOURCE(BEAKER) (test vqkc=0733) (CELLAVISION MANUAL DIFF)2019-03-20 18:32:00 Test Item Value Reference Range Comments NEUTROPHILS - REL (CELLAVISION)(BEAKER) (test 83 % xrxr=6307) LYMPHOCYTES - REL (CELLAVISION)(BEAKER) (test 3 % rhuq=1686) MONOCYTES - REL (CELLAVISION)(BEAKER) (test 3 % lhxx=3280) EOSINOPHILS - REL (CELLAVISION)(BEAKER) (test 7 % llwj=7395) BASOPHILS - REL (CELLAVISION)(BEAKER) (test 1 % gudr=9643) BANDS - REL (CELLAVISION)(BEAKER) (test 3 % 0-10 kdbu=8467) NEUTROPHILS - ABS (CELLAVISION)(BEAKER) (test 28.64 K/ul 1.78-5.38 wftq=6956) LYMPHOCYTES - ABS (CELLAVISION)(BEAKER) (test 1.04 K/ul 1.32-3.57 pmlj=5217) MONOCYTES - ABS (CELLAVISION)(BEAKER) (test 1.04 K/uL 0.30-0.82 zuco=3443) EOSINOPHILS - ABS (CELLAVISION)(BEAKER) (test 2.42 K/uL 0.04-0.54 qifo=4446) BASOPHILS - ABS (CELLAVISION)(BEAKER) (test 0.35 K/uL 0.01-0.08 qqgy=5685) BANDS - ABS (CELLAVISION)(BEAKER) (test 1.04 K/uL 0.00-0.80 cown=1623) TOTAL COUNTED (BEAKER) (test rxzd=4153) 100 PLT MORPHOLOGY (BEAKER) (test okqs=727) Normal VACUOLATED NEUTROPHILS (BEAKER) (test txgt=336) Present POLYCHROMATOPHILLIC RBCS(BEAKER) (test ewqu=719) 1+ few HYPOCHROMIA (BEAKER) (test yejz=822) 1+ few ANISOCYTOSIS (BEAKER) (test nhtc=536) 1+ few MICROCYTES (BEAKER) (test cktn=998) 1+ few POIKILOCYTES (BEAKER) (test cqie=663) 1+ few ROULEAUX (BEAKER) (test ozvf=157) 1+ few ELLIPTOCYTES (BEAKER) (test tfxm=840) 1+ few ARTIFACT (CELLAVISION)(BEAKER) (test uton=8369) Present PLATELET CONCENTRATION (CELLAVISION)(BEAKER) Increased (test cgrb=5677) Received comment: User comments: Slide comments:COMPREHENSIVE METABOLIC [id number] 18:27:00 Test Item Value Reference Range Comments TOTAL PROTEIN (BEAKER) 7.5 gm/dL 6.0-8.3 (test hght=549) ALBUMIN (BEAKER) (test 2.3 g/dL 3.5-5.0 jocv=4024) ALKALINE PHOSPHATASE 151 U/L 40-150 (BEAKER) (test nyhy=239) BILIRUBIN TOTAL (BEAKER) 0.3 mg/dL 0.2-1.2 (test tvpb=310) SODIUM (BEAKER) (test 128 meq/L 136-145 muuo=983) POTASSIUM (BEAKER) (test 4.3 meq/L 3.5-5.1 rgup=710) CHLORIDE (BEAKER) (test 96 meq/L 98-107 iplt=830) CO2 (BEAKER) (test 23 meq/L 22-29 vfub=196) BLOOD UREA NITROGEN 11 mg/dL 7-21 (BEAKER) (test utcg=803) CREATININE (BEAKER) (test 0.76 mg/dL 0.57-1.25 lvnf=828) GLUCOSE RANDOM (BEAKER) 118 mg/dL 70-105 (test czxb=729) CALCIUM (BEAKER) (test 9.3 mg/dL 8.4-10.2 gmst=499) AST (SGOT) (BEAKER) (test 26 U/L 5-34 ilrk=165) ALT (SGPT) (BEAKER) (test 13 U/L 6-55 wnvt=322) EGFR (BEAKER) (test 101 mL/min/1.73 sq ESTIMATED GFR IS NOT qfnx=2874) m ACCURATE CREATININE CLEARANCE IN PREDICTING GLOMERULAR FILTRATION RATE. ESTIMATED GFR IS NOT APPLICABLE FOR DIALYSIS PATIENTS. CBC W/PLT COUNT & AUTO [id number] 18:02:00 Test Item Value Reference Range Comments WHITE BLOOD CELL COUNT (BEAKER) (test ryjx=451) 34.5 K/ L 3.5-10.5 RED BLOOD CELL COUNT (BEAKER) (test pogj=755) 2.93 M/ L 4.63-6.08 HEMOGLOBIN (BEAKER) (test njwr=863) 7.0 GM/DL 13.7-17.5 HEMATOCRIT (BEAKER) (test whoh=738) 22.1 % 40.1-51.0 MEAN CORPUSCULAR VOLUME (BEAKER) (test tigy=193) 75.4 fL 79.0-92.2 MEAN CORPUSCULAR HEMOGLOBIN (BEAKER) (test 23.9 pg 25.7-32.2 rxmk=507) MEAN CORPUSCULAR HEMOGLOBIN CONC (BEAKER) (test 31.7 GM/DL 32.3-36.5 cvid=645) RED CELL DISTRIBUTION WIDTH (BEAKER) (test 20.7 % 11.6-14.4 nikp=723) PLATELET COUNT (BEAKER) (test gzry=557) 609 K/CU MM 150-450 MEAN PLATELET VOLUME (BEAKER) (test hmrm=901) 8.3 fL 9.4-12.4 NUCLEATED RED BLOOD CELLS (BEAKER) (test 0 /100 WBC 0-0 jlkn=551) NEUTROPHILS RELATIVE PERCENT (BEAKER) (test 77 % cxck=046) LYMPHOCYTES RELATIVE PERCENT (BEAKER) (test 5 % zuik=090) MONOCYTES RELATIVE PERCENT (BEAKER) (test 5 % lxxk=679) EOSINOPHILS RELATIVE PERCENT (BEAKER) (test 11 % wnef=765) BASOPHILS RELATIVE PERCENT (BEAKER) (test 0 % fucy=324) NEUTROPHILS ABSOLUTE COUNT (BEAKER) (test 26.65 K/ L 1.78-5.38 mhme=512) LYMPHOCYTES ABSOLUTE COUNT (BEAKER) (test 1.85 K/ L 1.32-3.57 agmb=304) MONOCYTES ABSOLUTE COUNT (BEAKER) (test 1.80 K/ L 0.30-0.82 caoi=878) EOSINOPHILS ABSOLUTE COUNT (BEAKER) (test 3.69 K/ L 0.04-0.54 plzl=628) BASOPHILS ABSOLUTE COUNT (BEAKER) (test 0.12 K/ L 0.01-0.08 rxoc=182) IMMATURE GRANULOCYTES-RELATIVE PERCENT (BEAKER) 1 % 0-1 (test vapb=9946) TISSUE [id number] 14:29:00Surgical Pathology Report Case: [id number] Authorizing Provider: Ceferino Glez MD Collected: 10/24/20181711 Ordering Location: [facility] Received: 10/24/2018 1719 SERVICES Pathologist: Arya Barrera MD Specimens: A) - Urethra, Distal urethral margin B) -Penis, Total Penectomy A. URETHRA, DISTAL MARGIN, EXCISION: - NEGATIVE FOR MALIGNANCYB. PENIS, TOTAL PENECTOMY: - INVASIVE MODERATELY DIFFERENTIATED SQUAMOUS CELL CARCINOMA - TUMOR INVOLVES THE GLANS PENIS, DISTAL HALF OF THE PENILE SHAFT INCLUDING URETHRA, BOTH CORPORA CAVERNOSA AND CORPUS SPONGIOSUM, AND EXTENDING TO THE SUBCUTANEOUS SOFT TISSUE OF THE SKIN - TUMOR MEASURES 6.3 X 5.0 X 4.0 CM - TUMOR THICKNESS : 3.6 CM - RESECTION MARGINS, NEGATIVE FOR MALIGNANCY - LYMPHOVASCULAR INVASION IS PRESENT - EXTENSIVE PERINEURAL INVASION IS PRESENT - AJCC PATHOLOGOC STAGING (8TH EDITION): [id number] - SEBORRHEIC KERATOSES Signing Pathologist Direct Phone Line: [phone] signed by Arya Barrera MD on 10/28/2018 at 2:29 PMThe tumor is centered around the urethra and shows areas of annika intraluminaltumor. Focal areas of keratinization are noted. Immunostain for p40 is positive, while DERRICK-3 is negative. Overall, the morphologic features and the immunophenotypic findings are consistent with a squamous cell carcinoma.Sections from the corpora cavernosa at the proximal transected edge shows detached fragments of tumor without accompanying tissue response, which is favored to be floater.PENIS (Penis - All Specimens)SPECIMEN Procedure: Total penectomy Foreskin: Present (uncircumcised) : Phimotic TUMOR Tumor Site: Glans Tumor Site: Coronal sulcus ( balanopreputial sulcus) Tumor Site: Shaft Tumor Site: Penile urethra Tumor Macroscopic Features: Ulcerated Tumor Macroscopic Features: Polypoid Tumor Macroscopic Features: Verruciform Histologic Type: Squamous cell carcinoma, usual type Histologic Grade: G2 Tumor Size: Greatest dimension in Centimeters (cm): 6.3 Centimeters (cm ) Additional Dimension in Centimeters (cm): 5 Centimeters (cm) Additional Dimension in Centimeters (cm): 4 Centimeters (cm) Tumor Thickness / Depth of Invasion in Millimeters (mm): 3.6 Millimeters (mm) Tumor Deep Borders: Pushing (broadly based) Tumor Focality: Unifocal Tumor Extent: Tumor Extension: Tumor invades dartos fascia Tumor Extension: Tumor invades corpus spongiosum Tumor Extension: Tumor invades corpus cavernosum Tumor Extension: Tumor invades tunica albuginea Tumor Extension: Tumor invades penile (distal) urethra Accessory Findings: Lymphovascular Invasion: Present Perineural Invasion: Present MARGINS Margins: Uninvolved LYMPH NODES Regional Lymph Nodes: No lymph nodes submitted or found PATHOLOGIC STAGE CLASSIFICATION (pTNM,AJCC 8th Edition) TNM Descriptors: Not applicable Primary Tumor (pT): pT3 Regional Lymph Nodes (pN): pNX ADDITIONAL FINDINGS Additional Pathologic Findings: Lichen sclerosus [id number] massA. Perineal urethra; PenisA. Received fresh for intraoperative consultation labeled "urethra" and consists of a 1.2 x 0.7 x 0.4 cm round pink soft tissue with a central slit-like patent lumen measuring 0.3 cm in diameter. The specimen is submitted entirely in a single cassette FSA for frozen section evaluation. MA/plB: Received in formalin labeled "total radical penectomy" [...] the proximal half of the specimen. The skin measures [id number] x 8.5 x 7.5 cm. The urethrameasures 7.5 cm in length and average of 0.4 cm in diameter. The specimen is bivalved along the longitudinal axis to reveal a 6.3 x 5 x 4 cm hanna-white firm irregular exophytic friable unifocal ulcerated and infiltrative mass involving glans penis and the distal half of the penile shaft. The foreskin appears phimotic. The tumor grossly involves the distal end of the penis, is 1.5 cm from the nearest skin margin and 9.5 cm from the proximal shaft/corporal margin. The urethra is probe-patent and shows intraluminal tumor. The tumor grossly involves both corpus cavernosa and spongiosa. The maximum tumorthickness 3.6 cm. The tumor is grossly present at the distal urethral/periurethral transected surface. The overlying skin is hanna-white, hair-bearing and appears grossly un-involved by tumor. There is a0.5 cm in diameter round exophytic dark warty like lesion on the dorsal aspect of the penis, 6.5 cm from the distal end. Ink code: blue, urethral lumen; yellow, possible distal urethral margin; blue ink is also skin margin from 12:00 to 3:00 , skin from 3:00 to 6:00 is red. Skin from 6:00 to 9:00 is black. Skin from 9: 00 to 12:00 is green. Section code: B1 through B7 skin margin entirely and sequentially submitted as follows: B1, B2, 12:00 to 3:00; B3 and B4, 3:00 to 6: 00; B5 and B6, 6:00 to 9:00; B79:00 to 12:00 (two pieces); B8, shaft margin en face, right; B9, shaft margin, en face, left; B10 and B11, possible distal urethral resection margin, right and left respectively; B12 and B13, B14 and B15 , tumor to urethra and underling corpora and skin, two fullthickness sections bisected(left half); B16 through B18, tumor to urethra, underlying corpora and skin, trisected (right half); B19 and B20, section full-thickness adjacent to section B16 to B18, bisected; B21 and B22, possible tumor to tunica albuginea, right half, full thickness, bisected'; B23 and B24, full-thickness section proximal to the tumor, right half, bisected; B25, full-thickness section at the possible proximal urethral surface, right half; B26 and B27, additional full- thickness section, left half, proximal to the tumor; B28, dorsal skin warty lesion, bisected; B29, tumor to skin additional. MA/plPART 1, AFS - DISTAL URETHRAL MARGIN: - NEGATIVE FOR CARCINOMAReported by Dr. Tejeda to Dr. Glez on 10/24/18 at 4.21 PM.Performed.The interpretation of this case included the use of immunohistochemistry or special stains. Immunohistochemistry technical testing was performed at [facility] where it was developed and its performance characteristics were determined. It has not been cleared or approved by the U.S. Food and Drug Administration. The FDA has determined that such clearanceor approval is not necessary. The test is used for clinical purposes. It should not be regarded as investigational or for research. This laboratory is certified under the Clinical Laboratory Improvement Amendments of 1988 (CLIA-88) as qualified to perform high complexity clinical laboratory testing.POCT-GLUCOSE [id number] 13:08:00 Test Item Value Reference Range Comments POC-GLUCOSE METER (BEAKER) 158 mg/dL 70-[address] [facility] [address] [place] [address] (test xraq=2448) [facility] [address] POCT-GLUCOSE [id number] 09:10:00 Test Item Value Reference Range Comments POC-GLUCOSE METER (BEAKER) 114 mg/dL 70-110 TESTED AT [address] (test oxlc=6029) [facility] [address] BASIC METABOLIC [id number] 07:16:00 Test Item Value Reference Range Comments SODIUM (BEAKER) (test 136 meq/L 136-145 bpja=028) POTASSIUM (BEAKER) (test 3.8 meq/L 3.5-5.1 vzrr=841) CHLORIDE (BEAKER) (test 103 meq/L 98-107 rcla=352) CO2 (BEAKER) (test 26 meq/L 22-29 xtyw=960) BLOOD UREA NITROGEN 5 mg/dL 7-21 (BEAKER) (test fleb=084) CREATININE (BEAKER) (test 0.66 mg/dL 0.57-1.25 sszl=647) GLUCOSE RANDOM (BEAKER) 92 mg/dL 70-105 (test ydiq=417) CALCIUM (BEAKER) (test 8.4 mg/dL 8.4-10.2 xval=706) EGFR (BEAKER) (test 119 mL/min/1.73 sq m ESTIMATED GFR IS NOT gdrs=3917) ACCURATE CREATININE CLEARANCE IN PREDICTING GLOMERULAR FILTRATION RATE. ESTIMATED GFR IS NOT APPLICABLE FOR DIALYSIS PATIENTS. HEMOGLOBIN AND [id number] 05:36:00 Test Item Value Reference Range Comments HEMOGLOBIN (BEAKER) (test gzno=256) 8.2 GM/DL 13.7-17.5 HEMATOCRIT (BEAKER) (test tvtd=666) 27.3 % 40.1-51.0 POCT-GLUCOSE [id number] 21:26:00 Test Item Value Reference Range Comments POC-GLUCOSE METER (BEAKER) 146 mg/dL 70-110 TESTED AT [address] (test fwlo=0953) [facility] [address] POCT-GLUCOSE [id number] 17:30:00 Test Item Value Reference Range Comments POC-GLUCOSE METER (BEAKER) 133 mg/dL 70-110 TESTED AT [address] (test fxld=9026) [facility] [address] POCT-GLUCOSE [id number] 12:29:00 Test Item Value Reference Range Comments POC-GLUCOSE METER (BEAKER) 144 mg/dL 70-110 TESTED AT [address] (test vjqe=5645) [facility] [address] POCT-GLUCOSE [id number] 08:56:00 Test Item Value Reference Range Comments POC-GLUCOSE METER (BEAKER) 97 mg/dL 70-110 TESTED AT [address] (test sley=8756) [facility] [address] BASIC METABOLIC [id number] 05:27:00 Test Item Value Reference Range Comments SODIUM (BEAKER) (test 134 meq/L 136-145 fnrt=133) POTASSIUM (BEAKER) (test 4.2 meq/L 3.5-5.1 lpfc=126) CHLORIDE (BEAKER) (test 104 meq/L 98-107 nltm=621) CO2 (BEAKER) (test 24 meq/L 22-29 kkmu=756) BLOOD UREA NITROGEN 7 mg/dL 7-21 (BEAKER) (test ykpb=615) CREATININE (BEAKER) (test 0.78 mg/dL 0.57-1.25 jmvu=335) GLUCOSE RANDOM (BEAKER) 95 mg/dL 70-105 (test bhry=709) CALCIUM (BEAKER) (test 8.4 mg/dL 8.4-10.2 hgyo=461) EGFR (BEAKER) (test 98 mL/min/1.73 sq m ESTIMATED GFR IS NOT ziug=7821) ACCURATE CREATININE CLEARANCE IN PREDICTING GLOMERULAR FILTRATION RATE. ESTIMATED GFR IS NOT APPLICABLE FOR DIALYSIS PATIENTS. HEMOGLOBIN AND [id number] 05:10:00 Test Item Value Reference Range Comments HEMOGLOBIN (BEAKER) (test pdil=920) 8.1 GM/DL 13.7-17.5 HEMATOCRIT (BEAKER) (test vere=543) 26.5 % 40.1-51.0 BASIC METABOLIC [id number] 20:44:00 Test Item Value Reference Range Comments SODIUM (BEAKER) (test 137 meq/L 136-145 hoaj=783) POTASSIUM (BEAKER) (test 5.0 meq/L 3.5-5.1 yggd=639) CHLORIDE (BEAKER) (test 105 meq/L 98-107 jfpe=769) CO2 (BEAKER) (test 23 meq/L 22-29 pmjo=466) BLOOD UREA NITROGEN 7 mg/dL 7-21 (BEAKER) (test bobs=303) CREATININE (BEAKER) (test 0.92 mg/dL 0.57-1.25 zxsc=640) GLUCOSE RANDOM (BEAKER) 121 mg/dL 70-105 (test hjja=036) CALCIUM (BEAKER) (test 8.7 mg/dL 8.4-10.2 tzhx=044) EGFR (BEAKER) (test 81 mL/min/1.73 sq m ESTIMATED GFR IS NOT beuc=2650) ACCURATE CREATININE CLEARANCE IN PREDICTING GLOMERULAR FILTRATION RATE. ESTIMATED GFR IS NOT APPLICABLE FOR DIALYSIS PATIENTS. HEMOGLOBIN AND [id number] 20:31:00 Test Item Value Reference Range Comments HEMOGLOBIN (BEAKER) (test hosg=351) 9.6 GM/DL 13.7-17.5 HEMATOCRIT (BEAKER) (test mxiu=119) 32.1 % 40.1-51.0 GLUCOSE-STAT [id number] 19:01:00 Test Item Value Reference Range Comments GLUCOSE RANDOM (BEAKER) (test ctpl=092) 106 mg/dL 70-110 HGB/HCT (H&H) - STAT [id number] 19:01:00 Test Item Value Reference Range Comments HEMOGLOBIN (BEAKER) (test wgmk=055) 8.1 g/dL 13.0-16.8 HEMATOCRIT (BEAKER) (test oxai=902) 24.0 % 40.0-50.0 CBC (HEMOGRAM ONLY)2018-10-24 13:00:00 Test Item Value Reference Range Comments WHITE BLOOD CELL COUNT (BEAKER) (test dret=982) 14.6 K/ L 3.5-10.5 RED BLOOD CELL COUNT (BEAKER) (test kfde=354) 3.21 M/ L 4.63-6.08 HEMOGLOBIN (BEAKER) (test ydnx=452) 7.4 GM/DL 13.7-17.5 HEMATOCRIT (BEAKER) (test wpal=330) 25.5 % 40.1-51.0 MEAN CORPUSCULAR VOLUME (BEAKER) (test zcgt=227) 79.4 fL 79.0-92.2 MEAN CORPUSCULAR HEMOGLOBIN (BEAKER) (test 23.1 pg 25.7-32.2 kyth=167) MEAN CORPUSCULAR HEMOGLOBIN CONC (BEAKER) (test 29.0 GM/DL 32.3-36.5 jswi=793) RED CELL DISTRIBUTION WIDTH (BEAKER) (test 26.3 % 11.6-14.4 tasz=175) PLATELET COUNT (BEAKER) (test yost=805) 564 K/CU MM 150-450 MEAN PLATELET VOLUME (BEAKER) (test vjmj=946) 8.5 fL 9.4-12.4 NUCLEATED RED BLOOD CELLS (BEAKER) (test 0 /100 WBC 0-0 sida=363) POCT-GLUCOSE [id number] 12:42:00 Test Item Value Reference Range Comments POC-GLUCOSE METER (BEAKER) 137 mg/dL 70-[address] [facility] [address] (test vejd=1292) [facility] [address]
[2019-03-28] MEDS ORDERED: NA CHLORIDE 0.9% 500 ML ONE (11:49)
[2019-03-28] MEDS ORDERED: SILVER NITRATE 1 APPL TOP ONE (11:49)
[2019-03-28] MEDS ORDERED: ONDANSETRON 4 MG/2 ML VIAL ONE ×2 (12:13→13:03)
[2019-03-28] MEDS ORDERED: MORPHINE 4 MG/ML SYR ONE (12:13)
[2019-03-28 12:21] LABS: Absolute Lymphocytes (CBC) 1.2 K/uL (0.7-4.9); Basophils % 0.3 % (0-1.3); Hematocrit 23.9 % (39.6-49.0); Lymphocytes % 4.3 % (15.3-44.8); MPV 6.5 fL (7.6-11.3); RBC Red Blood Cell Count 3.08 M/uL (4.33-5.43)
[2019-03-28 12:36] LABS: Albumin 1.3 g/dL (3.4-5.0); Bilirubin Total 0.2 mg/dL (0.2-1.0); Potassium 4.5 mmol/L (3.5-5.1); Protein, Total 6.8 g/dL (6.4-8.2); Protime INR 1.26
[2019-03-28] MEDS ORDERED: CEFAZOLIN/SWI 1gm 1 GM/10 ML SYR ONE (12:57)
--- NOTE | 2019-03-28 12:59 | RAD REPORT ---
EXAM DESCRIPTION: Ivana Single View03/28/2019 12:42 pm CLINICAL HISTORY: Cough COMPARISON: September 2018 FINDINGS: The lungs appear clear of acute infiltrate. The heart is normal size IMPRESSION: No acute abnormalities displayed
[2019-03-28] MEDS ORDERED: DIPHENHYDRAMINE 25 MG TAB/CAP ONE (13:33)
[2019-03-28] MEDS ORDERED: ACETAMINOPHEN 325 MG TABLET ONE (13:34)
[2019-03-28] MEDS ORDERED: NA CHLORIDE 0.9% 250 ML ONE (13:34)
--- NOTE | 2019-03-28 13:50 | ER ---
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 I see Dr. Luis at [facility]. I have been having problems with bleeding so last week I went to [facility] and they gave me blood but didn't do anything to address the bleeding itself. I got home Wednesday and it started bleeding badly Wednesday and Wednesday. Transition of care: patient was not received from another setting of care. Onset of symptoms was March 28, 2019. Risk Assessment: Do you want to hurt yourself or someone else? Patient reports no desire to harm self or others. Initial Sepsis Screen: Does the patient meet any 2 criteria? No. Patient's initial sepsis screen is negative. Does the patient have a suspected source of infection? No. Patient's initial sepsis screen is negative. Care prior to arrival: None. 10:57 Method Of Arrival: Wheelchair la1 10:57 Acuity: ALISON 2 la1 14:49 Presenting complaint:. rv Triage Assessment: 11:00 General: Appears in no apparent distress. uncomfortable, Behavior is cooperative, bp appropriate for age, anxious. Pain: Complains of pain in pelvis. EENT: No deficits noted. Neuro: No deficits noted. Cardiovascular: No deficits noted. Respiratory: No deficits noted. GI: No signs and/or symptoms were reported involving the gastrointestinal system. : No signs and/or symptoms were reported regarding the genitourinary system. Derm: No deficits noted. Musculoskeletal: No deficits noted. Injury Description: R GROIN BLEEDING CANCER LESION. Historical: - Allergies: 11:00 No Known Allergies; la1 - Home Meds: 11:00 None [Active]; la1 - PMHx: 11:00 Cancer, penile; Diabetes - NIDDM; Hypertension; la1 - Immunization history:: Adult Immunizations up to date. - Social history:: Smoking status: Patient/guardian denies using tobacco. - Ebola Screening: : No symptoms or risks identified at this time. - Family history:: not pertinent. Screenin:49 Abuse screen: Denies threats or abuse. Denies injuries from another. Nutritional hb screening: No deficits noted. Tuberculosis screening: No symptoms or risk factors identified. Fall Risk None identified. Assessment: 11:00 General: SEE TRIAGE NOTE. bp 12:19 Reassessment: BLEEDING CONTROLLED BY CAUTERY. LAB RESULTS PENDING. bp 13:39 Reassessment: 1ST UNIT PRBC REQUESTED. PER MD, PT CLEARED FOR RAPID TRANSFUSION TO bp ENSURE COMPLIANCE WITH XRT APPOINTMENT. 13:45 Reassessment: 1ST UNIT PRBC STARTED. CONSENT SIGNED/WITNESSED. SEE TRANSFUSION bp FLOWSHEET. 14:46 Reassessment: verbal order received from to bolus 2nd unit of PRBC. sg 14:49 Reassessment:. rv 14:50 Reassessment: pt to be discharged to home after 2nd unit of PRBC's infused, orders sg received to cancel the post transfusion H\T\H at this time, pt to be dc to home as ordered by ERP . 15:24 Reassessment: 2ND UNIT OF BLOOD DONE AFTER GIVING IT AT BOLUS RATE. PATIENT DOES NOT rv SHOW ANY SIGNS OF FLUID OVERLOAD. PATIENT WAS ABLE TO GET UP FROM BED TO THE WHEELCHAIR. NO SOB OR . TAKEN TO CANCER CENTER VIA WHEELCHAIR WITH NURSE RODRIGUEZ. Patient states feeling better. Patient states symptoms have improved. Vital Signs: 10:56 BP 110 / 67; Pulse 94; Resp 16; Temp 98.7; Pulse Ox 97% on R/A; la1 11:54 BP 119 / 62; Pulse 74; Resp 16; Pulse Ox 100% on R/A; hb 13:00 BP 119 / 64; Pulse 71; Resp 16; Pulse Ox 99% ; bp 14:00 BP 97 / 54; Pulse 81; Resp 15; Temp 97.8; Pulse Ox 100% on R/A; rv 14:20 BP 98 / 48; Pulse 77; Resp 14; Temp 97.9; Pulse Ox 100% on R/A; rv 14:50 BP 96 / 50; Pulse 74; Resp 17; Pulse Ox 99% on R/A; sg 15:15 BP 102 / 53; Pulse 71; Resp 16; Temp 97.9; Pulse Ox 100% on R/A; rv ED Course: 10:56 Patient arrived in ED. as 10:57 Arm band placed on left wrist. la1 10:59 Triage completed. la1 11:08 George Talavera MD is Attending Physician. abi 11:43 Christoph Richard, RAMONA is Primary Nurse. bp 11:49 Patient has correct armband on for positive identification. Placed in gown. Bed in low hb position. Call light in reach. Side rails up X 1. 11:49 Inserted saline lock: 20 gauge in right antecubital area, using aseptic technique. hb Blood collected. 12:18 R GROIN CHEMICAL CAUTERY AND DRESSING. bp 12:51 Chest Single View XRAY In Process Unspecified. EDMS 13:47 Alexis Grande MD is Referral Physician. abi 15:25 IV discontinued, intact, bleeding controlled, No redness/swelling at site. Pressure rv dressing applied. Administered Medications: 11:49 Drug: NS 0.9% 500 ml Route: IV; Rate: bolus; Site: right antecubital; hb 12:16 Drug: morphine 4 mg {Note: RASS 0.} Route: IVP; Site: right antecubital; hb 12:56 Follow up: Response: Pain is decreased bp 12:16 Drug: Zofran 4 mg Route: IVP; Site: right antecubital; hb 12:56 Follow up: Response: Pain is decreased bp 12:56 Drug: Ancef 1 grams Route: IVPB; Site: right antecubital; bp 13:45 Drug: Tylenol 650 mg Route: PO; bp 13:45 Drug: Benadryl 25 mg Route: PO; bp Outcome: 13:47 Discharge ordered by . abi 15:25 Discharged to CANCER CENTER rv 15:25 Condition: good 15:25 Discharge instructions given to patient, family, Instructed on discharge instructions, follow up and referral plans. medication usage, Demonstrated understanding of instructions, follow-up care, medications, Prescriptions given X 2. 15:26 Patient left the ED. rv Signatures: Dispatcher [employer] EDMS Xavi West RN RN George Talavera MD MD cha Martinez, Amelia as Attema, Lee, RN RN la1 Padilla, Lisa, RN RN hb Jose Manuel, Christoph, RN RN bp Lai, Teto, RN RN rv
--- NOTE | 2019-03-28 13:51 | EDPHYS ---
Physician Documentation [facility] Name: Mikel Serrato Age: 68 yrs Sex: Male : 1950 Arrival Date: 03/28/2019 Time: 10:56 Bed 4 Private MD: George Chavez HPI: 03/28 11:43 This 68 yrs old Male presents to ER via Wheelchair with complaints of Groin abi Pain. 11:43 The patient presents with decreased range of motion, pain. The complaints affect the abi right upper thigh. Context: The problem was sustained at home, resulted from a chronic condition. Onset: The symptoms/episode began/occurred 2 day(s) ago. Modifying factors: The symptoms are alleviated by remaining still, the symptoms are aggravated by movement. Associated signs and symptoms: The patient has no apparent associated signs or symptoms. Treatment prior to arrival includes: no previous treatment. Historical: - Allergies: 11:00 No Known Allergies; la1 - Home Meds: 11:00 None [Active]; la1 - PMHx: 11:00 Cancer, penile; Diabetes - NIDDM; Hypertension; la1 - Immunization history:: Adult Immunizations up to date. - Social history:: Smoking status: Patient/guardian denies using tobacco. - Ebola Screening: : No symptoms or risks identified at this time. - Family history:: not pertinent. ROS: 11:43 Constitutional: Negative for fever, chills, and weight loss, Eyes: Negative for injury, abi pain, redness, and discharge, ENT: Negative for injury, pain, and discharge, Neck: Negative for injury, pain, and swelling, Cardiovascular: Negative for chest pain, palpitations, and edema, Respiratory: Negative for shortness of breath, cough, wheezing, and pleuritic chest pain, Abdomen/GI: Negative for abdominal pain, nausea, vomiting, diarrhea, and constipation, Back: Negative for injury and pain, : Negative for injury, bleeding, discharge, and swelling, Neuro: Negative for headache, weakness, numbness, tingling, and seizure, Psych: Negative for depression, anxiety, suicide ideation, homicidal ideation, and hallucinations, Allergy/Immunology: Negative for hives, rash, and allergies, Endocrine: Negative for neck swelling, polydipsia, polyuria, polyphagia, and marked weight changes, Hematologic/Lymphatic: Negative for swollen nodes, abnormal bleeding, and unusual bruising. 11:43 MS/extremity: Positive for pain, swelling, tenderness, of the right leg. Exam: 11:43 Constitutional: This is a well developed, well nourished patient who is awake, alert, abi and in no acute distress. Head/Face: Normocephalic, atraumatic. Eyes: Pupils equal round and reactive to light, extra-ocular motions intact. Lids and lashes normal. Conjunctiva and sclera are non-icteric and not injected. Cornea within normal limits. Periorbital areas with no swelling, redness, or edema. ENT: Nares patent. No nasal discharge, no septal abnormalities noted. Tympanic membranes are normal and external auditory canals are clear. Oropharynx with no redness, swelling, or masses, exudates, or evidence of obstruction, uvula midline. Mucous membranes moist. Neck: Trachea midline, no thyromegaly or masses palpated, and no cervical lymphadenopathy. Supple, full range of motion without nuchal rigidity, or vertebral point tenderness. No Meningismus. Chest/axilla: Normal chest wall appearance and motion. Nontender with no deformity. No lesions are appreciated. Cardiovascular: Regular rate and rhythm with a normal S1 and S2. No gallops, murmurs, or rubs. Normal PMI, no JVD. No pulse deficits. Respiratory: Lungs have equal breath sounds bilaterally, clear to auscultation and percussion. No rales, rhonchi or wheezes noted. No increased work of breathing, no retractions or nasal flaring. Abdomen/GI: Soft, non-tender, with normal bowel sounds. No distension or tympany. No guarding or rebound. No evidence of tenderness throughout. Back: No spinal tenderness. No costovertebral tenderness. Full range of motion. Neuro: Awake and alert, GCS 15, oriented to person, place, time, and situation. Cranial nerves II-XII grossly intact. Motor strength 5/5 in all extremities. Sensory grossly intact. Cerebellar exam normal. Normal gait. Psych: Awake, alert, with orientation to person, place and time. Behavior, mood, and affect are within normal limits. 11:43 Musculoskeletal/extremity: ROM: intact in all extremities, full active range of motion, full passive range of motion, Circulation is intact in all extremities. Sensation intact. Compartment Syndrome exam of affected extremity: is normal. DVT Exam: negative Homans' sign noted on exam, no appreciated bluish discoloration, no erythema, no increased warmth, pain, swelling, tenderness. Vital Signs: 10:56 BP 110 / 67; Pulse 94; Resp 16; Temp 98.7; Pulse Ox 97% on R/A; la1 11:54 BP 119 / 62; Pulse 74; Resp 16; Pulse Ox 100% on R/A; hb 13:00 BP 119 / 64; Pulse 71; Resp 16; Pulse Ox 99% ; bp 14:00 BP 97 / 54; Pulse 81; Resp 15; Temp 97.8; Pulse Ox 100% on R/A; rv 14:20 BP 98 / 48; Pulse 77; Resp 14; Temp 97.9; Pulse Ox 100% on R/A; rv 14:50 BP 96 / 50; Pulse 74; Resp 17; Pulse Ox 99% on R/A; sg 15:15 BP 102 / 53; Pulse 71; Resp 16; Temp 97.9; Pulse Ox 100% on R/A; rv MDM: 11:08 Patient medically screened. [facility] 11:45 Data reviewed: vital signs, nurses notes, lab test result(s). [facility] 03/28 11:42 Order name: CBC with Diff; Complete Time: 14:38 [facility] 03/28 11:42 Order name: Comprehensive Metabolic Panel; Complete Time: 13:21 [facility] 03/28 11:42 Order name: PT-INR; Complete Time: 13:21 [facility] 03/28 11:42 Order name: Ptt, Activated; Complete Time: 13:21 [facility] 03/28 11:42 Order name: Type And Screen [facility] 03/28 12:32 Order name: Bb Add On bd 03/28 12:28 Order name: Chest Single View XRAY; Complete Time: 13:21 [facility] 03/28 12:44 Order name: Manual Differential; Complete Time: 14:38 [facility] 03/28 13:05 Order name: Packed RBC Leukored [facility] 03/28 11:42 Order name: Wound dressing: silver nitrate, surgicel; Complete Time: 11:59 [facility] Administered Medications: 11:49 Drug: NS 0.9% 500 ml Route: IV; Rate: bolus; Site: right antecubital; hb 12:16 Drug: morphine 4 mg {Note: RASS 0.} Route: IVP; Site: right antecubital; hb 12:56 Follow up: Response: Pain is decreased bp 12:16 Drug: Zofran 4 mg Route: IVP; Site: right antecubital; hb 12:56 Follow up: Response: Pain is decreased bp 12:56 Drug: Ancef 1 grams Route: IVPB; Site: right antecubital; bp 13:45 Drug: Tylenol 650 mg Route: PO; bp 13:45 Drug: Benadryl 25 mg Route: PO; bp Disposition: 03/28/19 13:47 Discharged to Home. Impression: Non-pressure chronic ulcer of skin of other sites - right groin, Anemia, unspecified, Elevated white blood cell count. - Condition is Stable. - Discharge Instructions: Anemia, Nonspecific, Type 2 Diabetes Mellitus, Diagnosis, Adult, Venous Ulcer, Blood Transfusion, Bltl-mm-Fluy, Type 2 Diabetes Mellitus, Diagnosis, Adult, Aata-ph-Zysc, Venous Ulcer, Rwea-ic-Kosp, Blood Transfusion, Care After, Jtvc-gw-Srce, Blood Transfusion, Adult, Care After. - Prescriptions for Tylenol- Codeine #3 300-30 mg Oral Tablet - take 2 tablet by ORAL route every 6 hours As needed; 30 tablet. Bactrim DS 800- 160 mg Oral Tablet - take 1 tablet by ORAL route every 12 hours for 7 days; 14 tablet. - Medication Reconciliation Form, Thank You Letter, Antibiotic Education, Prescription Opioid Use form. - Follow up: Private Physician; When: 2 - 3 days; Reason: Recheck today's complaints, Continuance of care, Re-evaluation by your physician. Follow up: Alexis Grande; When: Today; Reason: Recheck today's complaints, Continuance of care, Re-evaluation by your physician. - Problem is new. - Symptoms have improved. Signatures: Dispatcher [employer] EDMS George Talavera MD MD cha Attema, Lee RN RN la1 George Haro PA PA cp Baxter, Heather, RN RN Christoph Villegas, RAMONA RN Teto Ordaz, RAMONA RN rv Corrections: (The following items were deleted from the chart) 15:26 13:47 03/28/2019 13:47 Discharged to Home. Impression: Non-pressure chronic ulcer of rv skin of other sites - right groin; Anemia, unspecified; Elevated white blood cell count. Condition is Stable. Discharge Instructions: Type 2 Diabetes Mellitus, Diagnosis, Adult, Venous Ulcer, Type 2 Diabetes Mellitus, Diagnosis, Adult, Ghqq-qc-Xipm, Venous Ulcer, Jrwm-ng-Ofkq, Anemia, Nonspecific, Blood Transfusion, Fotg-oe-Euvq, Blood Transfusion, Care After, Igwp-jw-Mvvq, Blood Transfusion, Adult, Care After. Prescriptions for Tylenol-Codeine #3 300-30 mg Oral Tablet - take 2 tablet by ORAL route every 6 hours As needed; 30 tablet, Bactrim DS 800-160 mg Oral Tablet - take 1 tablet by ORAL route every 12 hours for 7 days; 14 tablet. and Forms are Medication Reconciliation Form, Thank You Letter, Antibiotic Education, Prescription Opioid Use. Follow up: Private Physician; When: 2 - 3 days; Reason: Recheck today's complaints, Continuance of care, Re-evaluation by your physician. Follow up: Alexis Grande; When: Today; Reason: Recheck today's complaints, Continuance of care, Re-evaluation by your physician. Problem is new. Symptoms have improved. abi
[2019-03-28 14:17] LABS: Anisocytosis 2+; Blood Morphology Comment NOTED (NOT SEEN); Hypochromasia 1+; Platelet Estimate INCR
[2019-03-28 16:01] VITALS: TEMP 97.9
[2019-03-28 16:04] VITALS: BP 102/53; O2SAT 100
== END 2019-03-28 15:26 | disposition home or self-care (01) ==
LOC: ER 10:54
DX: L97.819 Non-pressure chronic ulcer of other part of right lower leg with unspecified severity (principal); D64.9 Anemia, unspecified; D72.829 Elevated white blood cell count, unspecified; C60.9 Malignant neoplasm of penis, unspecified; E11.9 Type 2 diabetes mellitus without complications; I10 Essential (primary) hypertension
CPT/HCPCS: 85025; 36415; 86900; 86850; 85610; 86901; 85730; 80053; 71045; 96375; 96374; 99284; J0690; P9016 ×2; J2405 ×2

== ENCOUNTER 2019-05-10 23:13 | Inpatient (IN) | payer OTHER ==
[2019-05-11 00:20] LABS: Absolute Lymphocytes (CBC) 0.2 K/uL (0.7-4.9); Basophils % 0.5 % (0-1.3); Hematocrit 21.7 % (39.6-49.0); MPV 6.7 fL (7.6-11.3); RBC Red Blood Cell Count 2.58 M/uL (4.33-5.43)
[2019-05-11 00:22] LABS: Protime INR 1.26
[2019-05-11 00:37] LABS: Albumin 1.2 g/dL (3.4-5.0); Bilirubin Direct 0.1 mg/dL (0-0.2); Bilirubin Total 0.3 mg/dL (0.2-1.0); Magnesium 2.1 mg/dL (1.8-2.4); Potassium 3.8 mmol/L (3.5-5.1); Protein, Total 6.6 g/dL (6.4-8.2); Troponin (Emerg Dept Use Only) 0.05 ng/mL (0.0-0.045)
[2019-05-11] MEDS ORDERED: ACETAMINOPHEN 500 MG TAB PO PRN (01:12)
[2019-05-11] MEDS ORDERED: MORPHINE 2 MG/ML SYR IV PRN (01:12)
[2019-05-11] MEDS ORDERED: ONDANSETRON 4 MG/2 ML VIAL IV PRN (01:12)
--- NOTE | 2019-05-11 01:16 | ER ---
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 pt sees ak1 Dr. Pride at our [facility] center. pt with bilateral leg swelling. pt with roach in place behind scrotum. pt stated last BM was 5 days ACCT EXEC. pt c/o lymph nodes in groin swollen. Transition of care: patient was not received from another setting of care. Onset of symptoms is unknown. Risk Assessment: Do you want to hurt yourself or someone else? Patient reports no desire to harm self or others. Initial Sepsis Screen: Does the patient meet any 2 criteria? No. Patient's initial sepsis screen is negative. Does the patient have a suspected source of infection? No. Patient's initial sepsis screen is negative. Care prior to arrival: None. 23:26 Method Of Arrival: Wheelchair ak1 23:26 Acuity: ALISON 3 ak1 Triage Assessment: 23:25 General: Appears in no apparent distress. comfortable, Behavior is calm, cooperative. ak1 05/11 00:32 Respiratory: No deficits noted. Reports shortness of breath at rest Onset: The rv symptoms/episode began/occurred gradually, the patient has mild shortness of breath. Historical: - Allergies: 05/10 23:25 No Known Allergies; ak1 - Home Meds: 23:25 [place] Oral [Active]; Fentanyl Patch Topical [Active]; ak1 - PMHx: 23:25 Cancer, penile; Diabetes - NIDDM; Hypertension; ak1 - PSHx: 23:25 penile removal; ak1 - Immunization history:: Adult Immunizations unknown. - Social history:: Smoking status: Patient/guardian denies using tobacco. - Ebola Screening: : No symptoms or risks identified at this time. Screenin:37 Abuse screen: Denies threats or abuse. Denies injuries from another. Nutritional ca1 screening: No deficits noted. Tuberculosis screening: No symptoms or risk factors identified. Fall Risk IV access (20 points). Ambulatory Aid- Crutches/Cane/Walker (15 pts). Gait- Weak (10 pts.). Assessment: 05/11 00:31 General: Appears in no apparent distress. uncomfortable, Behavior is calm, cooperative. rv Pain: Complains of pain in right leg. Neuro: Level of Consciousness is awake, alert, obeys commands, Oriented to person, place, time, situation. Cardiovascular: Patient's skin is warm and dry. Rhythm is regular. Respiratory: Airway is patent Respiratory effort is unlabored, Breath sounds are clear bilaterally. GI: No signs and/or symptoms were reported involving the gastrointestinal system. : No signs and/or symptoms were reported regarding the genitourinary system. EENT: No signs and/or symptoms were reported regarding the EENT system. Derm: Skin with poor turgor. Musculoskeletal: Swelling present in right leg and left leg. 01:18 Reassessment: Patient appears in no apparent distress at this time. PATIENT TAKEN TO CT rv SCAN. FAMILY UPDATED ON STATUS AND PLAN OF CARE, FOR ADMISSION. PATIENT AND FAMILY AGREED. AWAITING RESULTS FOR DIAGNOSTICS. REPORT GIVEN TO RAMONA NATION. 02:00 Reassessment: Patient appears in no apparent distress at this time. No changes from previously documented assessment. Patient and/or family updated on plan of care and expected duration. Pain level reassessed. Patient is alert, oriented x 3, equal unlabored respirations, skin warm/dry/pink. 03:15 Reassessment: Patient appears in no apparent distress at this time. No changes from previously documented assessment. Patient and/or family updated on plan of care and expected duration. Pain level reassessed. Patient is alert, oriented x 3, equal unlabored respirations, skin warm/dry/pink. Report Given to Kathrine García RN. Vital Signs: 05/10 23:25 BP 112 / 37; Pulse 96; Resp 18; Temp 98.2; Pulse Ox 98% on R/A; Weight 84.82 kg (R); ak1 Height 5 ft. 6 in. (167.64 cm) (R); Pain 8/10; 05/11 00:00 BP 97 / 73; Pulse 87; Resp 23; Pulse Ox 100% on R/A; rv 00:30 BP 105 / 68; Pulse 85; Resp 16; Pulse Ox 100% on R/A; rv 01:00 BP 108 / 51; Pulse 82; Resp 16; Pulse Ox 100% on R/A; rv 03:00 BP 111 / 42; Pulse 83; Resp 18; Pulse Ox 100% on R/A; 05/10 23:25 Body Mass Index 30.18 (84.82 kg, 167.64 cm) ak1 ED Course: 05/10 23:15 Patient arrived in ED. ds1 23:25 Arm band placed on Patient placed in waiting room, Patient notified of wait time. ak1 23:27 Triage completed. ak1 23:30 Teto Hoyt, RAMONA is Primary Nurse. rv 23:37 Patient has correct armband on for positive identification. Bed in low position. Call ca1 light in reach. Side rails up X2. cardiac monitor on. Pulse ox on. NIBP on. Warm blanket given. Head of bed elevated. 23:51 George Talavera MD is Attending Physician. abi 23:55 Inserted saline lock: 20 gauge in left antecubital area, using aseptic technique. Blood rv collected. 23:55 Initial lab(s) drawn, by me, sent to lab. rv 23:55 First set of blood cultures drawn by me. rv 05/11 00:32 No provider procedures requiring assistance completed. rv 00:33 Notified ED physician of a critical lab result(s). hemoglobin of 7.1 and d dimer of fc 5492. 00:48 Terrance Sanchez MD is Hospitalizing Provider. abi 01:05 XRAY Chest (1 view) In Process Unspecified. EDMS 01:33 CT completed. Patient tolerated procedure well. Patient moved to CT via stretcher. Patient moved back from CT. 03:37 Patient admitted, IV remains in place. wh Administered Medications: 00:22 CANCELLED (Duplicate Order): Insulin Regular Human 10 units Sub-Q once [facility] :23 Drug: ProTONIX 40 mg Route: IVP; Site: left antecubital; 03:20 Follow up: Response: No adverse reaction : Drug: Zosyn 3.375 grams Route: IVPB; Infused Over: 60 mins; Site: left antecubital; 03:20 Follow up: Response: No adverse reaction; IV Status: Infusion continued upon admission 02:23 Drug: vancoMYCIN 1 grams Route: IVPB; Infused Over: 2 hrs; Site: right antecubital; 03:20 Follow up: Response: No adverse reaction; IV Status: Infusion continued upon admission 03:17 Drug: Zofran 4 mg Route: IVP; Site: right antecubital; 03:21 Follow up: Response: No adverse reaction; Nausea is decreased Outcome: 00:51 Decision to Hospitalize by Provider. abi 03:36 Admitted to Med/surg accompanied by tech, family with patient, via stretcher, room 229, with oxygen, with chart, Report called to Samantha García RN 03:36 Condition: good 03:36 Instructed on the need for admit. 03:37 Patient left the ED. Signatures: Dispatcher [employer] EDMS George Talavera MD MD cha Hagler, Ervin eh Chretien, Felicia, RN RN Mahsa Varela ds1 Christine Sheppard RN RN ak1 Isaac Pedersen Teto Hoyt RN RN rv Acob, Cheryl, RN RN ca1
--- NOTE | 2019-05-11 01:19 | EDPHYS ---
Physician Documentation [facility] Name: Arcenio Serrato Age: 69 yrs Sex: Male : 1950 Arrival Date: 05/10/2019 Time: 23:15 Bed 18 Private MD: ED Physician George Talavera HPI: 05/11 00:21 This 69 yrs old Male presents to ER via Wheelchair with complaints of abi Shortness Of Breath, Constipation. 00:21 The patient has shortness of breath at rest, with light activity. Onset: The abi symptoms/episode began/occurred yesterday. Duration: The symptoms are continuous, and are unchanged since they started. The patient's shortness of breath has no apparent modifying factors. Associated signs and symptoms: The patient has no apparent associated signs or symptoms. Severity of symptoms: At their worst the symptoms were mild in the emergency department the symptoms have resolved. The patient has experienced similar episodes in the past, several times. Historical: - Allergies: 05/10 23:25 No Known Allergies; ak1 - Home Meds: 23:25 [place] Oral [Active]; Fentanyl Patch Topical [Active]; ak1 - PMHx: 23:25 Cancer, penile; Diabetes - NIDDM; Hypertension; ak1 - PSHx: 23:25 penile removal; ak1 - Immunization history:: Adult Immunizations unknown. - Social history:: Smoking status: Patient/guardian denies using tobacco. - Ebola Screening: : No symptoms or risks identified at this time. ROS: 05/11 00:42 Eyes: Negative for injury, pain, redness, and discharge, ENT: Negative for injury, abi pain, and discharge, Neck: Negative for injury, pain, and swelling, Cardiovascular: Negative for chest pain, palpitations, and edema, Respiratory: Negative for shortness of breath, cough, wheezing, and pleuritic chest pain, Back: Negative for injury and pain, : Negative for injury, bleeding, discharge, and swelling, Neuro: Negative for headache, weakness, numbness, tingling, and seizure, Psych: Negative for depression, anxiety, suicide ideation, homicidal ideation, and hallucinations, Allergy/Immunology: Negative for hives, rash, and allergies, Endocrine: Negative for neck swelling, polydipsia, polyuria, polyphagia, and marked weight changes, Hematologic/Lymphatic: Negative for swollen nodes, abnormal bleeding, and unusual bruising. Abdomen/GI: Positive for abdominal pain, abdominal distension. MS/extremity: Positive for injury or acute deformity, decreased range of motion, swelling, tenderness, of the pelvis, right leg and left leg. Exam: 00:42 Constitutional: This is a well developed, well nourished patient who is awake, alert, abi and in no acute distress. Head/Face: Normocephalic, atraumatic. Eyes: Pupils equal round and reactive to light, extra-ocular motions intact. Lids and lashes normal. Conjunctiva and sclera are non-icteric and not injected. Cornea within normal limits. Periorbital areas with no swelling, redness, or edema. Neck: Trachea midline, no thyromegaly or masses palpated, and no cervical lymphadenopathy. Supple, full range of motion without nuchal rigidity, or vertebral point tenderness. No Meningismus. Chest/axilla: Normal chest wall appearance and motion. Nontender with no deformity. No lesions are appreciated. Cardiovascular: Regular rate and rhythm with a normal S1 and S2. No gallops, murmurs, or rubs. Normal PMI, no JVD. No pulse deficits. Respiratory: Lungs have equal breath sounds bilaterally, clear to auscultation and percussion. No rales, rhonchi or wheezes noted. No increased work of breathing, no retractions or nasal flaring. Back: No spinal tenderness. No costovertebral tenderness. Full range of motion. Neuro: Awake and alert, GCS 15, oriented to person, place, time, and situation. Cranial nerves II-XII grossly intact. Motor strength 5/5 in all extremities. Sensory grossly intact. Cerebellar exam normal. Normal gait. Psych: Awake, alert, with orientation to person, place and time. Behavior, mood, and affect are within normal limits. 00:42 Abdomen/GI: Inspection: distension. 00:42 Musculoskeletal/extremity: Circulation is intact in all extremities. Compartment Syndrome exam of affected extremity: is normal. DVT Exam: negative Homans' sign noted on exam, no appreciated bluish discoloration, no erythema, no increased warmth, pain, swelling, tenderness. Vital Signs: 05/10 23:25 BP 112 / 37; Pulse 96; Resp 18; Temp 98.2; Pulse Ox 98% on R/A; Weight 84.82 kg (R); ak1 Height 5 ft. 6 in. (167.64 cm) (R); Pain 8/10; 05/11 00:00 BP 97 / 73; Pulse 87; Resp 23; Pulse Ox 100% on R/A; rv 00:30 BP 105 / 68; Pulse 85; Resp 16; Pulse Ox 100% on R/A; rv 01:00 BP 108 / 51; Pulse 82; Resp 16; Pulse Ox 100% on R/A; rv 03:00 BP 111 / 42; Pulse 83; Resp 18; Pulse Ox 100% on R/A; wh 05/10 23:25 Body Mass Index 30.18 (84.82 kg, 167.64 cm) ak1 MDM: 05/10 23:51 Patient medically screened. [facility] 05/11 00:48 Data reviewed: vital signs, nurses notes, lab test result(s), EKG, radiologic studies, [facility] CT scan, plain films. 05/10 23:52 Order name: Basic Metabolic Panel; Complete Time: 00:40 [facility] 05/10 23:52 Order name: CBC with Diff; Complete Time: 00:40 [facility] 05/10 23:52 Order name: LFT's; Complete Time: 00:40 [facility] 05/10 23:52 Order name: Magnesium; Complete Time: 00:40 [facility] 05/10 23:52 Order name: NT PRO-BNP; Complete Time: 00:40 [facility] 05/10 23:52 Order name: PT-INR; Complete Time: 00:40 [facility] 05/10 23:52 Order name: Troponin (emerg Dept Use Only); Complete Time: 00:40 [facility] 05/10 23:52 Order name: Lipase; Complete Time: 00:40 [facility] 05/10 23:52 Order name: D-Dimer; Complete Time: 00:40 [facility] 05/10 23:52 Order name: Urine Culture [facility] 05/11 00:41 Order name: Blood Culture Adult (2) [facility] 05/11 00:41 Order name: Type And Screen [facility] 05/11 00:41 Order name: Procalcitonin [facility] 05/11 00:41 Order name: Lactate [facility] 05/10 23:52 Order name: XRAY Chest (1 view) [facility] 05/10 23:52 Order name: EKG; Complete Time: 23:54 [facility] 05/10 23:52 Order name: Cardiac monitoring; Complete Time: 00:33 [facility] 05/10 23:52 Order name: EKG - Nurse/Tech; Complete Time: 01:30 [facility] 05/10 23:52 Order name: IV Saline Lock; Complete Time: 00:33 [facility] 05/10 23:52 Order name: Labs collected and sent; Complete Time: 00:33 [facility] 05/10 23:52 Order name: O2 Per Protocol; Complete Time: 00:33 [facility] 05/10 23:52 Order name: O2 Sat Monitoring; Complete Time: 00: [facility] 05/11 00:47 Order name: CT Chest For PE Angio [facility] 05/11 01:30 Order name: Lactate EDMS Administered Medications: 00:22 CANCELLED (Duplicate Order): Insulin Regular Human 10 units Sub-Q once [facility] :23 Drug: ProTONIX 40 mg Route: IVP; Site: left antecubital; 03:20 Follow up: Response: No adverse reaction 02:23 Drug: Zosyn 3.375 grams Route: IVPB; Infused Over: 60 mins; Site: left antecubital; 03:20 Follow up: Response: No adverse reaction; IV Status: Infusion continued upon admission 02:23 Drug: vancoMYCIN 1 grams Route: IVPB; Infused Over: 2 hrs; Site: right antecubital; 03:20 Follow up: Response: No adverse reaction; IV Status: Infusion continued upon admission 03:17 Drug: Zofran 4 mg Route: IVP; Site: right antecubital; 03:21 Follow up: Response: No adverse reaction; Nausea is decreased Disposition: 05/11/19 00:51 Hospitalization ordered by Terrance Sanchez for Inpatient Admission. 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 - Bed requested for Telemetry/MedSurg (Inpatient). - Status is Inpatient Admission. - Condition is Fair. - Problem is new. - Symptoms have improved. UTI on Admission? No Signatures: Dispatcher [employer] Afia Leach RN RN mw Anderson, Corey, MD MD cha Krenek, Amber, RN RN ak1 [place], Winsy Corrections: (The following items were deleted from the chart) 00:22 00:21 Insulin Regular Human 10 units Sub-Q once ordered. [facility] 00:52 00:51 Hospitalization Ordered by Terrance Sanchez MD for Inpatient Admission. 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 Bed requested for Telemetry/MedSurg (Inpatient). Status is Inpatient Admission. Condition is Fair. Problem is new. Symptoms have improved. UTI on Admission? No. abi 02:33 00:52 05/11/2019 00:51 Hospitalization Ordered by Terrance Sanchez MD for Inpatient Admission. 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 Bed requested for Telemetry/MedSurg (Inpatient). Status is Inpatient Admission. Condition is Fair. Problem is new. Symptoms have improved. UTI on Admission? No. abi 03:37 02:33 05/11/2019 00:51 Hospitalization Ordered by Terrance Sanchez MD for Inpatient Admission. 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 Bed requested for Telemetry/MedSurg (Inpatient). Status is Inpatient Admission. Condition is Fair. Problem is new. Symptoms have improved. UTI on Admission? No. mw
[2019-05-11] MEDS ORDERED: LORazepam 2 MG/ML VIAL IV PRN (01:38)
[2019-05-11] MEDS ORDERED: TEMAZEPAM 15 MG CAP PO PRN (01:39)
[2019-05-11] MEDS ORDERED: VANCOMYCIN 1 GM/VIAL ONE (02:13)
[2019-05-11] MEDS ORDERED: PANTOPRAZOLE 40 MG INJ ONE (02:13)
[2019-05-11] MEDS ORDERED: NA CHLORIDE 0.9% 250 ML ONE ×3 (02:13→15:00)
[2019-05-11] MEDS ORDERED: PIPER/TAZO/NS 3.375gm 3.375 GM/100 ML BAG ONE (02:13)
[2019-05-11] MEDS ORDERED: ONDANSETRON 4 MG/2 ML VIAL ONE (03:11)
[2019-05-11 03:56] VITALS: BMI 30.5
[2019-05-11] MEDS: NA CHLORIDE 0.9% 1,000 ML IV SCH ×2 (04:45→15:20)
[2019-05-11] MEDS ORDERED: CEFTRIAXONE 1 GM/NS 50 ML 1 GM/50 ML BAG IV SCH (06:00)
[2019-05-11] MEDS ORDERED: CEFTRIAXONE/SWI 1gm 1 GM/10 ML SYR ONE (06:30)
[2019-05-11 06:36] LABS: Urine Appearance CLOUDY; Urine Bilirubin NEGATIVE (NEG); Urine Blood 3+ (NEG); Urine Color YELLOW; Urine Glucose NEGATIVE (NEG); Urine Protein NEGATIVE (NEG); Urine Urobilinogen 0.2 mg/dL (0.2-1.0)
[2019-05-11 06:40] LABS: Urine Microscopic Reflex ORDER UMIC
[2019-05-11 06:53] LABS: Urine Bacteria <20 /HPF (NONE SEEN); Urine Culture Reflex Order REFLEXED
[2019-05-11 07:19] LABS: RBC Red Blood Cell Count 2.21 M/uL (4.33-5.43)
[2019-05-11 07:21] LABS: Absolute Lymphocytes (CBC) 0.2 K/uL (0.7-4.9); Basophils % 0.4 % (0-1.3); Hematocrit 18.3 % (39.6-49.0); Lymphocytes % 1.3 % (15.3-44.8); MPV 7.5 fL (7.6-11.3); RBC Red Blood Cell Count 2.19 M/uL (4.33-5.43)
[2019-05-11] MEDS: CEFTRIAXONE/SWI 1gm 1 GM/10 ML SYR IV SCH (07:39)
--- NOTE | 2019-05-11 07:40 | RAD REPORT ---
EXAM DESCRIPTION: RAD - Chest Single View - 05/11/2019 12:14 am CLINICAL HISTORY: Dyspnea COMPARISON: March 28 TECHNIQUE: AP portable chest image was obtained 0009 hours . FINDINGS: Lung volumes remain low. No focal mass or consolidation. Interstitial pattern is slightly increased over comparison. Upper lobe vasculature within normal limits. Heart size is normal range an d stable. No measurable pleural effusion and no pneumothorax. No acute bony abnormality seen. No acut e aortic findings suspected. IMPRESSION: No focal mass or consolidation. Lung markings are slightly increased on this shallow inspiration film compared to prior study. Patien t can be monitored for developing cardiac decompensation or volume overload.
[2019-05-11 08:05] LABS: Folic Acid, (Folate) 11.3 ng/mL (3.1-17.5); Troponin I 0.04 ng/mL (0.0-0.045)
[2019-05-11 08:08] LABS: Thyroid Stimulating Hormone 14.9 uIU/mL (0.360-3.740)
--- NOTE | 2019-05-11 10:18 | P.HP ---
Certification for Inpatient Patient admitted to: Inpatient With expected LOS: >2 Midnights Patient will require the following post-hospital care: None Practitioner: I am a practitioner with admitting privileges, knowledge of patient current condition, hospital course, and medical plan of care. Services: Services provided to patient in accordance with Admission requirements found in Title 42 Section 412.3 of the Code of Federal Regulations Patient History Date of Service: 05/11/19 Reason for admission: METASTATIC PENILE CANCER History of Present Illness: PATIENT IS A 69YO WHO WAS ADMITTED TO THE HOSPITAL W/ GENERALIZED WEAKNESS. PATIENT IS SEVERELY ANEMIC. PATIENT HAS SIGNIFICANT LYMPHADENOPATHY DIFFUSELY. PET SCAN REVEALED HIGH UPTAKE WITHIN THE LYMPH NODES. PATIENT'S PROGNOSIS IS POOR. MEDICAL ONCOLOGY WERE RECOMMENDED THAT CHEMOTHERAPY WOULD NOT BE BENEFICIAL. PATIENT HAS BEEN GETTING PALLIATIVE RADIATION THERAPY. PATIENT IS FEELING WEAK AND SHORT OF BREATH MOST LIKELY RELATED TO HIS ANEMIA. IN THE ER HIM AND HIS DID NOT INITIALLY WANNA GET BLOOD TRANSFUSED FOR A HEMOGLOBIN OF 7.1. I HAVE TOLD HIM THAT AFTER HYDRATION IF THIS WILL PROBABLY GO DOWN EVEN MORE. WE MAY TRANSFUSE IF HE DROPS BELOW 7 PER THE FAMILY. HIS PROGNOSIS IS VERY POOR. WE WILL NEED TO GET SOCIAL WORK TO SPEAK WITH PATIENT REGARDING HOSPICE. Allergies No Known Allergies Allergy (Unverified 10/12/18 11:01) Home Medications: Hydrocodone Bit/Acetaminophen [Hydrocodon-Acetaminophn 10-325] 05/11/19 fentaNYL [Fentanyl] 1 each TD EVERY 3RD DAY 05/11/19 - Past Medical/Surgical History Has patient received pneumonia vaccine in the past: No Diabetic: Yes -: DM -: HTN -: PENILE CANCER -: APPENDECTOMY -: RIGHT HIP SX -: RIGHT KNEE SX - Family History Father Medical History: Heart disease, Lung disease Mother Medical History: Other (see notes) Notes: breast cancer - Social History Smoking Status: Never smoker Alcohol use: No CD- Drugs: No Caffeine use: Yes Place of Residence: Home Review of Systems 10-point ROS is otherwise unremarkable Physical Examination - Vital Signs Temperature: 97.8 F Blood Pressure: 105/52 Pulse: 79 Respirations: 18 Pulse Ox (%): 93 - Physical Exam General: Alert, In no apparent distress, Oriented x3, Cachectic HEENT: Atraumatic, PERRLA, Mucous membr. moist/pink, EOMI, Sclerae nonicteric Neck: Supple, 2+ carotid pulse no bruit, No LAD, Without JVD or thyroid abnormality Respiratory: Clear to auscultation bilaterally, Normal air movement Cardiovascular: Regular rate/rhythm, Normal S1 S2 Gastrointestinal: Normal bowel sounds, Soft and benign, Non-distended, No tenderness Musculoskeletal: No clubbing, No swelling, No tenderness Integumentary: No rashes Neurological: Normal gait, Normal speech, Normal strength at 5/5 x4 extr, Normal tone, Sensation intact, Cranial nerves 3-12 intact, Normal affect Lymphatics: No axilla or inguinal lymphadenopathy - Studies Laboratory Data (last 24 hrs) 05/10/19 23:55: PT 14.7 H, INR 1.26 05/10/19 23:55: WBC 17.1 H, Hgb 7.1 L*, Hct 21.7 L, Plt Count 178 05/10/19 23:55: Sodium 133 L, Potassium 3.8, BUN 12, Creatinine 1.00, Glucose 109 H, Magnesium 2.1, Total Bilirubin 0.3, AST 18, ALT 8 L, Alkaline Phosphatase 126 H, Lipase 23 L Assessment & Plan - Problems (Diagnosis) (1) Diabetes Current Visit: No Status: Chronic (2) Hypertension Current Visit: No Status: Chronic (3) Penile cancer Current Visit: No Status: Suspected - Plan PLAN: 1. IV HYDRATION 2. TRANSFUSE IF HEMOGLOBIN LESS THAN 7 3. SOCIAL WORK CONSULTATION FOR PALLIATIVE CARE 4. POOR PROGNOSIS AND FAMILY UNDERSTANDS THAT NO FURTHER TREATMENT IS PROBABLY RECOMMENDED AT THIS TIME WILL WAIT CASE MANAGEMENT CONSULTATION. Discharge Plan: Home Plan to discharge in: Greater than 2 days - Advance Directives Does patient have a Living Will: Yes Does patient have a Durable POA for Healthcare: Yes - Code Status/Comfort Care Code Status Assessed: Yes Code Status: Full Code Comfort Measures: Palliative Care Critical Care: No Time Spent Managing PTS Care (In Minutes): 45
--- NOTE | 2019-05-11 12:54 | RAD REPORT ---
EXAM DESCRIPTION: CT - Chest For Pe Angio - 05/11/2019 3:23 am CLINICAL HISTORY: The patient is 69 years old and is Male; COUGH TECHNIQUE: Axial computed tomographic angiography images of the chest with intravenous contrast. S agittal and coronal reformatted images were created and reviewed. This CT exam was performed using one or more of the following dose reduction techniques: automated exposure control, adjustment of t he mA and/or kV according to patient size, and/or use of iterative reconstruction technique. MIP reconstructed images were created and reviewed. COMPARISON: No relevant prior studies available. FINDINGS: ARTIFACTS: The exam is suboptimal secondary to motion artifact. PULMONARY ARTERIES: The main pulmonary arteries and proximal segmental branches opacify normally and are without filling defect. AORTA: No acute findings. No thoracic aortic aneurysm. LUNGS: Compressive atelectasis within the lung bases is noted. No mass. PLEURAL SPACE: Small bilateral pleural effusions are present, right greater than left. No pneu mothorax. HEART: The heart is enlarged with a small pericardial effusion. No evidence of RV dysfunction. BONES/JOINTS: There are degenerative changes of the bones. No acute fracture. No dislocation . SOFT TISSUES: Unremarkable. LYMPH NODES: Mildly prominent mediastinal and hilar adenopathy is noted. LIVER: The liver is enlarged and fatty. IMPRESSION: 1. The main pulmonary arteries and proximal segmental branches opacify normally and ar e without filling defect. The remainder of the vessels are not as well evaluated secondary to motio n artifact. 2. Cardiomegaly with small pleural effusions and compressive atelectasis. Electronically signed by: Marlene Wakefield MD 05/11/2019 2:24 AM CDT Due to temporary technical issues with the PACS/Fluency reporting system, reports are being signed by the in house radiologist as a courtesy to ensure prompt reporting. The interpreting radiologist is f ully responsible for the content of the report.
[2019-05-11] MEDS: HYDROMORPHONE HCL 1 MG/ML INJ IV PRN ×2 (15:16→20:37)
[2019-05-11 21:49] LABS: Hematocrit 25.6 % (39.6-49.0)
[2019-05-11] MEDS ORDERED: POLYETHYL GLY 3350 17 GM/DOSE PO PRN (21:49)
[2019-05-11] MEDS ORDERED: HYDROMORPHONE HCL 1 MG/ML INJ IV PRN (21:51)
[2019-05-12 04:31] VITALS: O2SAT 99
[2019-05-12] MEDS: CEFTRIAXONE/SWI 1gm 1 GM/10 ML SYR IV SCH (05:48)
[2019-05-12 06:08] LABS: Absolute Lymphocytes (CBC) 0.2 K/uL (0.7-4.9); Basophils % 0.3 % (0-1.3); Lymphocytes % 1.3 % (15.3-44.8); MPV 7.2 fL (7.6-11.3); RBC Red Blood Cell Count 2.67 M/uL (4.33-5.43)
[2019-05-12 06:11] LABS: Protime INR 1.25
[2019-05-12 06:20] LABS: AST/SGOT 14 U/L (15-37); Alkaline Phosphatase 93 U/L (45-117); BUN Blood Urea Nitrogen 13 mg/dL (7-18); Bicarbonate 27 mmol/L (21-32); Bilirubin Total 0.4 mg/dL (0.2-1.0); Glucose Level 94 mg/dL (74-106); Potassium 3.8 mmol/L (3.5-5.1); Protein, Total 5.6 g/dL (6.4-8.2); Sodium Level 136 mmol/L (136-145)
[2019-05-12 06:24] LABS: ALT/SGPT < 6 U/L (12-78)
[2019-05-12 08:15] LABS: Platelet Estimate ADEQ; Urine White Blood Cell Casts OK
[2019-05-12 08:17] LABS: Anisocytosis 1+; Blood Morphology Comment NOTED (NOT SEEN)
--- NOTE | 2019-05-12 08:42 | EKG ---
Test Date: 2019-05-11 Test Time: 00:47:28 Dry Wall Applicator: RV MEASUREMENT RESULTS: Intervals: Rate: 83 AL: 158 QRSD: 98 QT: 346 QTc: 406 [place]: P: 9 AL: 158 QRS: 12 T: -1 INTERPRETIVE STATEMENTS: Normal sinus rhythm Minimal voltage criteria for LVH, may be normal variant Inferior infarct, age undetermined Anterolateral infarct, age undetermined Abnormal ECG Compared to ECG 10/11/2018 10:14:50 Left ventricular hypertrophy now present Myocardial infarct finding now present Electronically Signed On 05-12-19 08:40:37 CDT by Noé Bee
[2019-05-12] MEDS ORDERED: DOCUSATE NA 100 MG CAP PO SCH (09:00)
[2019-05-12 09:35] VITALS: BP 119/58; TEMP 99.1
--- NOTE | 2019-05-12 12:50 | P.SSS ---
Patient History Date of Service: 05/12/19 Reason for admission: METASTATIC PENILE CANCER History of Present Illness: See HPI Allergies No Known Allergies Allergy (Unverified 10/12/18 11:01) Home Medications: Hydrocodone Bit/Acetaminophen [Hydrocodon-Acetaminophn 10-325] 10 mg PO QID PRN 05/11/19 Triamterene/Hydrochlorothiazid [Triamterene-Hctz 37.5-25 mg Cp] 100 mg PO BID fentaNYL [Fentanyl] 1 each TD EVERY 3RD DAY 05/11/19 - Past Medical/Surgical History Has patient received pneumonia vaccine in the past: No Diabetic: Yes -: DM -: HTN -: PENILE CANCER -: APPENDECTOMY -: RIGHT HIP SX -: RIGHT KNEE SX - Family History Father -: Heart disease, Lung disease Mother -: Other (see notes) Notes: breast cancer - Social History Smoking Status: Never smoker Alcohol use: No CD- Drugs: No Caffeine use: Yes Place of Residence: Home Review of Systems 10-point ROS is otherwise unremarkable Physical Examination - Vital Signs Temperature: 99.1 F Blood Pressure: 119/58 Pulse: 85 Respirations: 18 Pulse Ox (%): 96 - Physical Exam General: Alert, In no apparent distress HEENT: Atraumatic, PERRLA, Mucous membr. moist/pink, EOMI, Sclerae nonicteric Neck: Supple, 2+ carotid pulse no bruit, No LAD, Without JVD or thyroid abnormality Respiratory: Clear to auscultation bilaterally, Normal air movement Cardiovascular: Regular rate/rhythm, Normal S1 S2 Gastrointestinal: Normal bowel sounds, No tenderness Musculoskeletal: No tenderness Integumentary: No rashes Neurological: Normal gait, Normal speech, Normal strength at 5/5 x4 extr, Normal tone, Normal affect Lymphatics: No axilla or inguinal lymphadenopathy - Diagnosis (Problem(s)) (1) Symptomatic anemia Current Visit: No Status: Acute (2) Diabetes Current Visit: No Status: Chronic Qualifiers: (3) Hypertension Current Visit: No Status: Chronic Qualifiers: (4) Penile cancer Current Visit: No Status: Suspected Treatment Summary: Hospice home patient was discharge once all the equipment was delivered at the house. While here in the hospital patient did receive 2 units of PRBC - Disposition Disposition: ROUTINE DISCHARGE Condition: GOOD Diet: Regular Activity: Ad gigi
== END 2019-05-12 13:15 | disposition hospice, home (50) | DRG 812 ==
LOC: ER 23:13 → ERHOLD 05-11 01:55 → 2ND 05-11 03:02
PROVIDERS: ADMIT Hospitalist; ATTEND Family Medicine
PROC: 30233N1 Transfusion of Nonautologous Red Blood Cells into Peripheral Vein, Percutaneous Approach (ICD-10-PCS; principal; 2019-05-11)
DX: D64.9 Anemia, unspecified (principal); R64 Cachexia; R59.1 Generalized enlarged lymph nodes; E11.9 Type 2 diabetes mellitus without complications; I10 Essential (primary) hypertension; Z68.30 Body mass index [BMI] 30.0-30.9, adult; C60.9 Malignant neoplasm of penis, unspecified
CPT/HCPCS: 36415; 36430; 71045; 71275; 77386; 80048; 80053; 80076; 81003; 81015; 82533; 82607; 82746; 83540; 83605; 83690; 83735; 83880; 84145; 84439; 84443; 84466; 84484; 85014; 85018; 85025; 85044; 85379; 85610; 85730; 86850; 86900; 86901; 87040; 87077; 87086; 87088; 87186; 93005; 99285; C9113; J0696; J1170; J2405; J2543; J7030; P9016; Q9967